=== PATIENT | male | born 1955 | race Caucasian/White ===

== ENCOUNTER 2021-02-24 09:10 | Inpatient (IN) ==
[2021-02-24] MEDS ORDERED: ONDANSETRON 4 MG/2 ML VIAL IV ONE (09:24)
--- NOTE | 2021-02-24 09:32 | Emergency Department Note ---
Weakness HPI General Chief complaint: Weakness Stated complaint: weakness, GI upset Time Seen by Provider: 02/24/21 09:14 Source: patient, RN notes reviewed and old records reviewed Mode of arrival: ambulatory Limitations: no limitations History of Present Illness HPI Narrative: Narrative: 65-year-old male complains of increasing generalized weakness. He denies focal weakness. He explains that he was told that he is having kidney failure secondary to his diabetes. This apparently was 2 weeks ago. Over the last 2 weeks he has had increasing generalized weakness. He complains of nausea vomiting anorexia. He is able to hold down liquids but not solids. He has decreased urine output and for the last week he has had increased nausea and vomiting. He denies fevers chills headache sore throat stiff neck chest pain abdominal pain or diarrhea. Complains of increasing shortness of breath with exertion or laying down. Has chronic peripheral edema with stasis changes to bilateral lower extremities. He knows of no additional work-up or plan for his worsening renal failure. MD Complaint: generalized weakness and lack of energy Onset (ago): week(s) (2) Duration: constant Location: generalized Migration: none Severity: moderate Improves with: none Worsens with: exertion Context: recent illness Associated symptoms: Reports loss of appetite, nausea/vomiting and shortness of breath; Denies chest pain, confusion, dark stools, diaphoresis, dysuria, easy bruising, fever/chills, headaches, myalgias, rash and syncope Related Data Home Medications Medication Instructions Recorded Confirmed lisinopril-hydrochlorothiazide 1 tab PO QDAY 02/24/21 02/24/21 metformin 1,000 mg PO BID 02/24/21 02/24/21 Allergies Allergy/AdvReac Type Severity Reaction Status Date / Time Iodinated Contrast Media Allergy Severe Anaphylaxis Verified 02/24/21 09:20 iodine Allergy Severe Anaphylaxis Verified 02/24/21 09:20 Review of Systems ROS ROS Narrative: Narrative: Constitutional: Reports weakness and weight change; Denies fever, chills and sweats Eyes: Denies vision change ENT ED: Denies throat pain Cardiovascular: Denies chest pain Respiratory: Reports shortness of breath Gastrointestinal: Reports nausea, vomiting and constipation; Denies abdominal pain, diarrhea, hematochezia, melena, hematemesis, acid reflux and heart burn Genitourinary: Reports other (Decreased urine output) Musculoskeletal: Denies back pain Integumentary: Reports rash, lesions and change in color Neurological: Denies headache Psychiatric: Denies depression Endocrine: Reports fatigue Hematological/Lymphatic: Denies easy bruising Allergic/Immunologic: Denies urticaria PFSH Narrative Patient History Narrative: Narrative: Medical/Surgical/Family History All Active Problems (Updated 02/24/21 @ 10:58 by Ludwin Ying MD) Acute renal failure (Acute) Nausea & vomiting (Acute) Non-insulin dependent diabetes mellitus (Acute) Acute hyperkalemia (Acute) Social History Smoking Status: Never smoker Exam Narrative Narrative: Narrative: General Limitations: no limitations General appearance: Present alert, in no apparent distress, malaise and obese Head Head: Present atraumatic and normocephalic Eye Eye: Present normal appearance, PERRL and EOMI ENT ENT: Present normal exam and mucous membranes dry Neck Neck: Present normal inspection and full ROM Chest Chest: Present normal inspection; Absent tenderness Respiratory Respiratory: Present rales/crackles; Absent respiratory distress Cardiovascular Cardiovascular: Present regular rate, normal rhythm and systolic murmur Adbominal Abdominal: Present soft; Absent distention, tenderness, guarding and rebound Extremities Extremities: Present full ROM, pedal edema and pretibial edema; Absent tenderness, normal capillary refill and calf tenderness Back Back: Present normal inspection; Absent CVA tenderness (R) and CVA tenderness (L) Neurological Neurological: Present alert and oriented X3 Psychiatric Psychiatric: Present normal affect and normal mood Skin Skin: Present warm (WNL) and rash (Chronic stasis changes to bilateral lower extremities) Course Vital Signs Vital signs: Vital Signs Temperature 98.9 F 02/24/21 09:10 Pulse Rate 115 H 02/24/21 09:10 Blood Pressure 218/86 02/24/21 09:10 Pulse Oximetry (%) 98 02/24/21 09:10 Temperature 98.0 F 02/24/21 09:11 Pulse Rate 95 H 02/24/21 11:02 Blood Pressure 144/124 02/24/21 11:02 Pulse Oximetry (%) 100 02/24/21 11:02 MDM MDM Narrative Medical decision making narrative: Narrative: Patient with marginally elevated white count that is lymphocyte predominant. H&H is 10.8/31.5 appears to be anemia of chronic disease. K is 5.2 but there are no hyperacute T waves on EKG. BUN is 161 over a creatinine is 16.3. I believe the uremia is causing the patient's nausea and vomiting. Discussed this patient with renal requested hospitalist admit patient and he will see in consultation. Patient admitted to hospitalist diagnosis acute renal failure mild hyperkalemia anemia of chronic disease nonindependent diabetes Lab Data Lab results reviewed: Yes I reviewed the patient's lab results. Result diagrams: 02/24/21 09:32 02/24/21 09:32 Labs: Lab Results 02/24/21 02/24/21 02/24/21 Range/Units 09:32 09:32 09:32 WBC 13.3 H (4.5-11.0) K/mcL RBC 3.48 L (4.50-5.90) M/mcL Hgb 10.8 L (13.5-16.5) g/dL Hct 31.5 L (41.0-55.0) % MCV 90.5 (80.0-100.0) fL MCH 31.0 (26.0-34.0) pg MCHC 34.3 (31.0-36.0) g/dL RDW 12.1 (11.5-14.5) % Plt Count 222 (140-440) K/mcL MPV 11.6 H (7.4-10.4) fL Neut % (Auto) 76.0 (38.0-78.0) % Lymph % (Auto) 14.7 L (15.0-49.0) % [place] % (Auto) 8.9 (1.0-12.0) % Eos % (Auto) 0.2 (0.0-7.0) % Baso % (Auto) 0.2 (0.0-2.0) % Lymph # (Auto) 1.96 (1.50-4.80) K/mcL [place] # (Auto) 1.18 H (0.10-0.90) K/mcL Eos # (Auto) 0.02 (0.00-0.70) K/mcL Baso # (Auto) 0.03 (0.00-0.20) K/mcL Absolute Neutrophils 10.11 H (1.80-8.00) K/mcL Sodium 139 (133-145) mmol/L Potassium 5.2 H (3.3-5.1) mmol/L Chloride 97 (96-108) mmol/L Carbon Dioxide 9 L* (22-30) mmol/L Anion Gap 33.0 H (8.0-16.0) BUN 161 H* (8-23) mg/dL Creatinine 16.3 H* (0.7-1.2) mg/dL GFR Calculation 3 Glucose 122 H (70-105) mg/dL Calcium 9.1 (8.6-10.4) mg/dL Total Bilirubin 0.3 (0.1-1.0) mg/dL AST 8 (<40) U/L ALT 8 (<40) U/L Alkaline Phosphatase 71 (39-117) U/L Troponin T 0.02 (<0.03) ng/mL Total Protein 7.2 (5.9-8.4) gm/dL Albumin 4.0 (3.2-5.2) gm/dL Globulin 3.2 (2.2-3.7) gm/dL Albumin/Globulin Ratio 1.3 (1.0-2.3) Radiology Data Radiology results reviewed: Yes I reviewed the patient's radiology results. EKG Data EKG #1: EKG attestation: Yes I reviewed and interpreted this EKG. EKG shows normal: sinus rhythm Rate: normal (90) Rhythm: NSR [place]/QRS: left axis deviation Hyperacute T waves: None Interpretation: normal EKG Pulse Oximetry Data Pulse Ox %: 99 Interpretation: 99% within normal limits. Discharge Plan Patient/Caregiver Discharge Instructions Pt seen by PLAYGROUND AIDE/PA only: No Clinical Impression: Non-insulin dependent diabetes mellitus, Acute hyperkalemia Acute renal failure Qualifiers: Acute renal failure type: unspecified Qualified Code(s): N17.9 - Acute kidney failure, unspecified Nausea & vomiting Qualifiers: Vomiting type: unspecified Vomiting Intractability: intractable Qualified Code(s): R11.2 - Nausea with vomiting, unspecified Patient Disposition: Xfer As Inpt ([facility]) Follow up with: Shashank Rocha MD [Primary Care Provider] - Prescriptions: No Action metformin 1,000 mg Tablet 1,000 mg PO BID RF: 0 lisinopril-hydrochlorothiazide 20-25 mg Tablet 1 tab PO QDAY RF: 0
[2021-02-24 10:12] LABS: Basophils # (Auto) 0.03 K/mcL (0.00-0.20); Basophils % (Auto) 0.2 % (0.0-2.0); Eosinophils # (Auto) 0.02 K/mcL (0.00-0.70); Eosinophils % (Auto) 0.2 % (0.0-7.0); Hematocrit 31.5 % (41.0-55.0); Hemoglobin 10.8 g/dL (13.5-16.5); Lymphocytes # (Auto) 1.96 K/mcL (1.50-4.80); Lymphocytes % (Auto) 14.7 % (15.0-49.0); Mean Cell Volume 90.5 fL (80.0-100.0); Mean Corpuscular HGB Conc 34.3 g/dL (31.0-36.0); Mean Platelet Volume 11.6 fL (7.4-10.4); Monocytes # (Auto) 1.18 K/mcL (0.10-0.90); Monocytes % (Auto) 8.9 % (1.0-12.0); Platelet Count 222 K/mcL (140-440); RBC 3.48 M/mcL (4.50-5.90); Red Cell Distribution Width 12.1 % (11.5-14.5); WBC 13.3 K/mcL (4.5-11.0)
[2021-02-24 10:51] LABS: ALT/SGPT 8 U/L (<40); AST/SGOT 8 U/L (<40); Albumin/Globulin Ratio 1.3 (1.0-2.3); Alkaline Phosphatase 71 U/L (39-117); Bilirubin,Total 0.3 mg/dL (0.1-1.0); Blood Urea Nitrogen 161 mg/dL (8-23); Calcium 9.1 mg/dL (8.6-10.4); Carbon Dioxide 9 mmol/L (22-30); Chloride 97 mmol/L (96-108); Globulin 3.2 gm/dL (2.2-3.7); Glomerular Filtration Rate 3; Glucose 122 mg/dL (70-105)
[2021-02-24] MEDS ORDERED: SODIUM BICARBONATE VIAL 150 MEQ in DEXTROSE 5% IN WATER 850 ML IV SCH ×2 (11:15→20:00)
--- NOTE | 2021-02-24 11:50 | XRay Report ---
CLINICAL INFORMATION: Shortness of breath COMPARISON: None. TECHNIQUE: Portable FINDINGS: The heart size, mediastinum and pulmonary vessels are unremarkable. The lungs are clear. There are no effusions. The bones and soft tissues are within normal limits. IMPRESSION: Normal chest. Interpreted and Authenticated by: Finesse Griffin 02/24/21
--- NOTE | 2021-02-24 12:48 | Internal Med History&Physical ---
HPI History of Present Illness Patient information: Note initiated : 02/24/21 at 12:41 pm Service Date, if different from initiated Date: [] Patient: Finesse Beaver 65 y/o M admitted on for weakness, GI upset. Chief Complaint: [] History of present illness: Mr. Beaver is a 65 year old male with a history of hypertension, non-insulin diabetes, CKD stage III, history of melanoma status post resection and immunotherapyno known recurrence, psoriasis who presented to the ED for nausea, vomiting and generally feeling unwell. Patient was found to be in renal failure with a creatinine of 16.3, anion gap metabolic acidosis, mild hyperkalemia. The patient had previous labs which showed a creatinine of 2.61 on February 07, 2021. Patient says that he was feeling okay up until about a week ago when he developed watery diarrhea which progressed to intractable nausea and vomiting. The patient experienced chills during this time but does not recall any fevers. The patient's diarrhea has resolved but he continues to have intractable vomiting and unable to keep down food or liquids. Patient says that he stopped urinating 2 to 3 days ago. Review of available documents show that the patient had an elevated creatinine in December 2019 of 1.61, repeat labs in January 2020 showed a creatinine of 1.65. Patient said he had labs drawn during a routine wellness visit on February 07, 2021. Creatinine at that time was 2.61. Hemoglobin was slightly decreased at 12.3. Hemoglobin A1c was 6.9. The patient was admitted for management and further up of acute renal failure. Constitutional: Positive for chills, fatigue, anorexia Eyes: no vision changes or pain Cardiovascular: no chest pain, no palpitations Respiratory: no cough or dyspnea Gastrointestinal: Positive for nausea and vomiting, resolving diarrhea Genitourinary: Positive for anuria Musculoskeletal: no arthralgia or myalgia Integumentary: Positive for chronic psoriatic skin lesions Neurological: no focal weakness or numbness Psychiatric: no anxiety or depression Head: Atraumatic, normal inspection. Eyes: normal appearance, no scleral icterus. Neck: full ROM Respiratory: no respiratory distress. Cardiovascular: normal rate and rhythm, S1, S2. GI/Abdominal: soft, nontender, no guarding. Extremities: full range of motion, nontender. Neurological: CN II-XII intact, intact motor, intact sensation. Psychiatric: normal mood. Skin: Psoriatic plaque on right knee. PFSH PFSH All Active Problems (Updated 02/24/21 @ 10:58 by Ludwin Ying MD) Acute renal failure (Acute) Nausea & vomiting (Acute) Non-insulin dependent diabetes mellitus (Acute) Acute hyperkalemia (Acute) MEDS/ALLERGIES Home Medications and Allergies Home Medications Medication Instructions Recorded Confirmed Type lisinopril-hydrochlorothiazide 1 tab PO QDAY 02/24/21 02/24/21 History metformin 1,000 mg PO BID 02/24/21 02/24/21 History Allergies Allergy/AdvReac Type Severity Reaction Status Date / Time Iodinated Contrast Media Allergy Severe Anaphylaxis Verified 02/24/21 09:20 iodine Allergy Severe Anaphylaxis Verified 02/24/21 09:20 EXAM Constitutional Vitals: Temp Pulse BP Pulse Ox 98.0 F 93 H 188/79 97 02/24/21 09:11 02/24/21 12:18 02/24/21 12:18 02/24/21 12:18 DATA Data Completed and Pending Labs: Labs from last 24 hours 02/24/21 02/24/21 02/24/21 10:44 10:44 10:44 WBC RBC Hgb Hct MCV MCH MCHC RDW Plt Count MPV Neut % (Auto) Lymph % (Auto) [place] % (Auto) Eos % (Auto) Baso % (Auto) Lymph # (Auto) [place] # (Auto) Eos # (Auto) Baso # (Auto) Absolute Neutrophils Sodium Potassium Chloride Carbon Dioxide Anion Gap BUN Creatinine GFR Calculation Glucose Calcium Total Bilirubin AST ALT Alkaline Phosphatase Troponin T Total Protein Albumin Globulin Albumin/Globulin Ratio Urine Eosinophils Pending Ur Random Creatinine U Random Total Protein Pending Ur Random Sodium Pending Ur Random Potassium Pending Ur Random Chloride Pending 02/24/21 02/24/21 02/24/21 10:44 09:32 09:32 WBC RBC Hgb Hct MCV MCH MCHC RDW Plt Count MPV Neut % (Auto) Lymph % (Auto) [place] % (Auto) Eos % (Auto) Baso % (Auto) Lymph # (Auto) [place] # (Auto) Eos # (Auto) Baso # (Auto) Absolute Neutrophils Sodium 139 Potassium 5.2 H Chloride 97 Carbon Dioxide 9 L* Anion Gap 33.0 H BUN 161 H* Creatinine 16.3 H* GFR Calculation 3 Glucose 122 H Calcium 9.1 Total Bilirubin 0.3 AST 8 ALT 8 Alkaline Phosphatase 71 Troponin T 0.02 Total Protein 7.2 Albumin 4.0 Globulin 3.2 Albumin/Globulin Ratio 1.3 Urine Eosinophils Ur Random Creatinine Pending U Random Total Protein Ur Random Sodium Ur Random Potassium Ur Random Chloride 02/24/21 09:32 WBC 13.3 H RBC 3.48 L Hgb 10.8 L Hct 31.5 L MCV 90.5 MCH 31.0 MCHC 34.3 RDW 12.1 Plt Count 222 MPV 11.6 H Neut % (Auto) 76.0 Lymph % (Auto) 14.7 L [place] % (Auto) 8.9 Eos % (Auto) 0.2 Baso % (Auto) 0.2 Lymph # (Auto) 1.96 [place] # (Auto) 1.18 H Eos # (Auto) 0.02 Baso # (Auto) 0.03 Absolute Neutrophils 10.11 H Sodium Potassium Chloride Carbon Dioxide Anion Gap BUN Creatinine GFR Calculation Glucose Calcium Total Bilirubin AST ALT Alkaline Phosphatase Troponin T Total Protein Albumin Globulin Albumin/Globulin Ratio Urine Eosinophils Ur Random Creatinine U Random Total Protein Ur Random Sodium Ur Random Potassium Ur Random Chloride A/P Narrative A/P Narrative: Assessment: 65-year-old male with a history of HTN, [id number], CKD III, history of renal stones, history of melanoma status post resection and immunotherapyno known recurrence, psoriasis admitted for acute on chronic failure. Initial work-up in the ED suggestive of bilateral hydronephrosis and probably renal stones. Patient requested DNR code status. #Severe acute on chronic kidney disease stage III injuryanuric vs oliguric? #Anion gap metabolic acidosis #Hyperkalemia #Hypertensive urgency #Normocytic anemialikely due to CKD #Probable bilateral hydronephrosis #History of renal stones #Diabetes mellituswell controlled #Essential hypertension #Hx of melanoma status post resection and immunotherapy in the 1990sno known recurrence #Plaque psoriasis #Obesity Plan -IV fluid with bicarbonate, nephrology to manage. -Follow potassium and renal function closely. -Urinalysis -Follow urine output closely. -Avoid nephrotoxic meds, renally dose meds. -CT abdomen pelvis without contrast. -Start Norvasc 5 mg daily. -Labetalol IV and hydralazine IV as needed. -SSI for now. -Holding home lisinoprilhydrochlorothiazide, Metformin. -Follow-up pending renal ultrasound results. -Urology consulteddiscussed with Dr. Palacios. -Nephrology consulted by ED-Dr. Whittington. -Telemetry until hyperkalemia resolves. -DVT PPx: Heparin SQ -CODE STATUS: DNR per patient's request. Time Spent With Patient Time: Total time spent is greater than 50% in coordination of care (as documented) at patient's floor/unit and/or counseling patient: 70
[2021-02-24] MEDS ORDERED: DEXTROSE 31 GM ORAL.SUSP PO PRN ×2 (13:11→13:53)
[2021-02-24] MEDS ORDERED: hydrALAZINE 20 MG/ML VIAL IV PRN ×2 (13:11→13:53)
[2021-02-24] MEDS ORDERED: DEXTROSE 50% 50 ML VIAL IV PRN ×2 (13:11→13:53)
[2021-02-24] MEDS ORDERED: LABETALOL 5 MG/ML ML IV PRN ×3 (13:11→15:14)
[2021-02-24] MEDS ORDERED: ONDANSETRON 4 MG/2 ML VIAL IV PRN ×4 (13:11→15:36)
--- NOTE | 2021-02-24 13:54 | General Surgery Consult Note ---
HPI Data of Consult Patient: new to practice Primary Care Provider: Shashank Rocha Consult Narrative Patient Information: Note initiated : 02/24/21 at 1:45 pm Service Date, if different from initiated Date: [] Patient: Finesse Beaver 65 y/o M admitted on 02/24/21 for weakness, GI upset. Chief Complaint: [] Reason for consult: Renal failure cc:: Patient seen a 65-year-old with presentation emergency room with renal failure and ultrasound demonstrating bilateral hydronephrosis and subsequent CT demonstrating bilateral large renal calculi at the UPJ with hydronephrosis and no hydroureter noted. Patient has minimal urine in the bladder consistent with bilateral ureteral obstruction and renal failure subsequently. Patient relates he has had stones in the past but managed without having seen a urologist by his family practice practitioner. He relates he has had no past infection problems to his knowledge. Has had no problem with anesthesia in the past and has hypertension without anticoagulation presently. CC: Richardson Burgos MD PFSH PFSH All Active Problems Bilateral kidney stones (Acute) Acute renal failure (Acute) Nausea & vomiting (Acute) Non-insulin dependent diabetes mellitus (Acute) Acute hyperkalemia (Acute) Medical History Bilateral kidney stones MEDS/ALLERGIES Home Medications and Allergies Home Medications Medication Instructions Recorded Confirmed Type lisinopril-hydrochlorothiazide 1 tab PO QDAY 02/24/21 02/24/21 History metformin 1,000 mg PO BID 02/24/21 02/24/21 History Allergies Allergy/AdvReac Type Severity Reaction Status Date / Time Iodinated Contrast Media Allergy Severe Anaphylaxis Verified 02/24/21 09:20 iodine Allergy Severe Anaphylaxis Verified 02/24/21 09:20 Physical Examination Vital Signs Vital signs: Temp Pulse BP Pulse Ox 98.0 F 96 H 202/76 98 02/24/21 09:11 02/24/21 12:32 02/24/21 12:32 02/24/21 12:32 General physical appearance General physical exam: well developed, well nourished and moderate distress Eyes Eye exam: PERRL and normal ocular movement ENT ENT exam: normal pinna, normal nares, normal mucosa, no hearing loss and no congestion Head Head exam IM: Present atraumatic and normocephalic Neck Neck exam: no masses, no bruits, trachea midline, no lymphadenopathy and no venous distension Cardiovascular Cardiovascular exam IM: Present normal rate and rhythm Respiratory Respiratory exam: normal expansion, normal respiratory effort, clear to percussion and clear to auscultation Abdomen Abdomen: Present soft Hernia: Present none Genitourinary Genitourinary (Male): Present normal penis with no external lesions Rectum Rectum: Present normal sphincter tone, no hemorrhoids, no tenderness, no masses and no bleeding Integumentary Integumentary: Present no rash, no growths and no abnormal pigmentation Neurologic Neurologic: Present normal coordination and normal sensation Musculoskeletal Musculoskeletal: Present normal gait, normal posture and other (Mild bilateral CVA tenderness) Psychiatric Psychiatric: Present oriented to time, oriented to person, oriented to place, speech is normal and memory intact Results Labs Result diagrams: 02/24/21 09:32 02/24/21 09:32 Labs: Abnormal lab results 02/24/21 02/24/21 Range/Units 09:32 09:32 WBC 13.3 H (4.5-11.0) K/mcL RBC 3.48 L (4.50-5.90) M/mcL Hgb 10.8 L (13.5-16.5) g/dL Hct 31.5 L (41.0-55.0) % MPV 11.6 H (7.4-10.4) fL Lymph % (Auto) 14.7 L (15.0-49.0) % [place] # (Auto) 1.18 H (0.10-0.90) K/mcL Absolute Neutrophils 10.11 H (1.80-8.00) K/mcL Potassium 5.2 H (3.3-5.1) mmol/L Carbon Dioxide 9 L* (22-30) mmol/L Anion Gap 33.0 H (8.0-16.0) BUN 161 H* (8-23) mg/dL Creatinine 16.3 H* (0.7-1.2) mg/dL Glucose 122 H (70-105) mg/dL Diabetes panel 02/24/21 Range/Units 09:32 Sodium 139 (133-145) mmol/L Potassium 5.2 H (3.3-5.1) mmol/L Chloride 97 (96-108) mmol/L Carbon Dioxide 9 L* (22-30) mmol/L BUN 161 H* (8-23) mg/dL Creatinine 16.3 H* (0.7-1.2) mg/dL Glucose 122 H (70-105) mg/dL Calcium 9.1 (8.6-10.4) mg/dL AST 8 (<40) U/L ALT 8 (<40) U/L Alkaline Phosphatase 71 (39-117) U/L Total Protein 7.2 (5.9-8.4) gm/dL Albumin 4.0 (3.2-5.2) gm/dL Calcium panel 02/24/21 Range/Units 09:32 Calcium 9.1 (8.6-10.4) mg/dL Albumin 4.0 (3.2-5.2) gm/dL Pituitary panel 02/24/21 Range/Units 09:32 Sodium 139 (133-145) mmol/L Potassium 5.2 H (3.3-5.1) mmol/L Chloride 97 (96-108) mmol/L Carbon Dioxide 9 L* (22-30) mmol/L BUN 161 H* (8-23) mg/dL Creatinine 16.3 H* (0.7-1.2) mg/dL Glucose 122 H (70-105) mg/dL Calcium 9.1 (8.6-10.4) mg/dL Adrenal panel 02/24/21 Range/Units 09:32 Sodium 139 (133-145) mmol/L Potassium 5.2 H (3.3-5.1) mmol/L Chloride 97 (96-108) mmol/L Carbon Dioxide 9 L* (22-30) mmol/L BUN 161 H* (8-23) mg/dL Creatinine 16.3 H* (0.7-1.2) mg/dL Glucose 122 H (70-105) mg/dL Calcium 9.1 (8.6-10.4) mg/dL Total Bilirubin 0.3 (0.1-1.0) mg/dL AST 8 (<40) U/L ALT 8 (<40) U/L Alkaline Phosphatase 71 (39-117) U/L Total Protein 7.2 (5.9-8.4) gm/dL Albumin 4.0 (3.2-5.2) gm/dL All other labs normal. A/P Narrative A/P Narrative: Assessment: Renal failure with bilateral renal pelvis stones and UPJ obstructions with anuria. Plan: Proceed with cystoscopy bilateral stone pushback and stent placement as soon as possible Patient understands risks and benefits and agrees to plan as outlined and will proceed with subsequent stone management once renal failure has improved/resolved. Time Spent With Patient Time: Total time spent is greater than 50% in coordination of care (as documented) at patient's floor/unit and/or counseling patient: Total time spent with greater than 50% in coordination of care (as documented) at patient's floor/unit and/or counseling patient:: 15 - 24 minutes
[2021-02-24] MEDS ORDERED: 0.9 % SODIUM CHLORIDE 10 ML SYRINGE IV SCH (14:00)
--- NOTE | 2021-02-24 14:04 | Nephrology History & Physical ---
HPI History of Present Illness Patient information: Note initiated : 02/24/21 at 1:59 pm Service Date, if different from initiated Date: [] Patient: Finesse Beaver 65 y/o M admitted on 02/24/21 for weakness, GI upset. Chief Complaint: [N,V, Diarrhea] History of present illness: Mr. Beaver is a 65 year old Male patient with HTN and T2DM on lisinopril/HCt and metformin who had nl GFR till recently when PCP reported BUN/Cr of 54 and 2.6 mg/d/ on February 07, 2021. Has a Hx of stone passage in past but no need for stents or lithotripsy. To ED this am and found with the following labs and radiography: Laboratory Tests 02/24/21 02/24/21 09:32 09:32 WBC 13.3 H Hgb 10.8 L Hct 31.5 L Plt Count 222 Potassium 5.2 H Chloride 97 Carbon Dioxide 9 L* BUN 161 H* Creatinine 16.3 H* GFR Calculation 3 Glucose 122 H Calcium 9.1 Albumin 4.0 Right and Left Kidneys (13 and 16 cm) CT Scan The patient was taken to the operating room and had bilateral double-J stents placed. Anticipate marked improvement in his GFR and acidosis over the next 24 to 72 hours. Ultimately he will need bilateral stone extraction or extracorporeal shockwave lithotripsy. Urine culture is pending. Lisinopril HCT and Metformin will be held pending improvement in his GFR. Review of Systems All systems: reviewed and no additional remarkable complaints except as stated Constitutional Constitutional: Absent fever(s) Gastrointestinal Gastrointestinal: Present diarrhea, nausea and vomiting PFSH PFSH All Active Problems (Updated 02/24/21 @ 18:58 by Chris Whittington MD) Acute bilateral obstructive uropathy (Acute) Metabolic acidosis with increased anion gap and accumulation of organic acids (Acute) Acute renal failure (Acute) Acute hyperkalemia (Acute) Nausea & vomiting (Acute) Non-insulin dependent diabetes mellitus (Acute) Bilateral kidney stones (Acute) Medical History Bilateral kidney stones MEDS/ALLERGIES Home Medications and Allergies Home Medications Medication Instructions Recorded Confirmed Type lisinopril-hydrochlorothiazide 1 tab PO QDAY 02/24/21 02/24/21 History metformin 1,000 mg PO BID 02/24/21 02/24/21 History Allergies Allergy/AdvReac Type Severity Reaction Status Date / Time Iodinated Contrast Media Allergy Severe Anaphylaxis Verified 02/24/21 09:20 iodine Allergy Severe Anaphylaxis Verified 02/24/21 09:20 Physical Examination Vital Signs Vital signs: Temp Pulse BP Pulse Ox 36.7 C 96 H 202/76 98 02/24/21 09:11 02/24/21 12:32 02/24/21 12:32 02/24/21 12:32 General Appearance General appearance: well-developed and obese EENT EENT: ATNC, PERRL and mucous membranes moist Neck Neck: no JVD, no carotid bruit and supple Respiratory Respiratory: clear Cardiovascular Cardiology: no murmurs, no rub, no gallops, no edema, regular rate, regular rhythm, normal S1 and normal S2 Gastrointestinal Gastrointestinal: normoactive bowel sounds, no tenderness and no guarding Integumentary Integumentary: no rash Neurologic Neurologic: no focal deficit, no asterixis, alert and oriented x3 and CN 3-12 intact Musculoskeletal Musculoskeletal: no deformities, no erythema and no cyanosis Psychiatric Psychiatric: mood/affect appropriate Results Lab Results Result Diagrams: 02/24/21 09:32 02/24/21 16:18 Lab results: Most recent lab results Calcium 9.1 mg/dL (8.6-10.4) 02/24/21 09:32 A/P Assessment and plan (1) Acute renal failure: Status: Acute Qualifiers: Acute renal failure type: unspecified Qualified Code(s): N17.9 - Acute kidney failure, unspecified (2) Acute hyperkalemia: Status: Acute (3) Metabolic acidosis with increased anion gap and accumulation of organic acids: Status: Acute (4) Acute bilateral obstructive uropathy: Status: Acute Narrative A/P Narrative: This patient has a 1 month history of acute renal failure primarily due to bilateral obstructive uropathy from kidney stones as demonstrated on today's imaging. Lisinopril is contributing to worsening GFR by interfering with renal autoregulation of blood flow Metformin is contributing to the obstruction related type IV RTA (not anion gap) by causing a lactic acidosis due to its administration in a patient with GFR less than 10 cc/min. Anticipate all this will improve in the next 24 to 72 hours Anticipate that he will require potassium replacement as his acidosis is corrected. Time Spent With Patient Time: Total time spent is greater than 50% in coordination of care (as documented) at patient's floor/unit and/or counseling patient: Total time spent with greater than 50% in coordination of care (as documented) at patient's floor/unit and/or counseling patient:: Greater than 35 minutes
[2021-02-24] MEDS: cefTRIAXone 1 GM VIAL IV SCH (14:28)
[2021-02-24] MEDS ORDERED: PROPOFOL 200 MG/20 ML VIAL IV ONE (14:41)
[2021-02-24] MEDS ORDERED: MIDAZOLAM 2 MG/2 ML VIAL ONE (14:41)
[2021-02-24] MEDS ORDERED: GLYCOPYRROLATE 0.2 MG/ML VIAL IV ONE (14:41)
[2021-02-24] MEDS ORDERED: fentaNYL 100 MCG/2 ML VIAL IV ONE (14:41)
[2021-02-24] MEDS ORDERED: ONDANSETRON 4 MG/2 ML VIAL ONE (14:41)
[2021-02-24] MEDS ORDERED: DEXAMETHASONE 10 MG/ML VIAL ONE (14:41)
[2021-02-24] MEDS ORDERED: KETAMINE 100 MG/ML ML ONE (14:41)
[2021-02-24] MEDS ORDERED: LIDOCAINE HCL/PF 100 MG/5 ML SYRINGE IV ONE (14:41)
[2021-02-24] MEDS ORDERED: fentaNYL 100 MCG/2 ML VIAL IV PRN (15:14)
[2021-02-24] MEDS ORDERED: ACETAMINOPHEN 1,000 MG/100 ML BAG IV ONE (15:14)
[2021-02-24] MEDS ORDERED: BENZOCAINE/MENTHOL 1 LOZENGE PO PRN (15:14)
[2021-02-24] MEDS ORDERED: IPRATROPIUM/ALBUTEROL 3 ML AMPUL.NEB NEB PRN (15:14)
[2021-02-24] MEDS ORDERED: LACTATED RINGERS 1,000 ML IV SCH (15:15)
--- NOTE | 2021-02-24 15:36 | Operative Note ---
Operative Note Operative Note: Operation report Date of service 24 February 2021 Preop diagnosis: acute renal failure with bilateral ureteral obstruction secondary to renal calculi and anuria Postop diagnosis: Same Surgeon: Dr. Jose E Palacios Operation performed: Cystoscopy with bilateral stone pushback and stent placement with fluoroscopy Anesthesia: Dr. Freed type General Drains: Bilateral 7 x 28 cm double-J stents with no suture per urethra 16 Macanese coud catheter to straight drainage Estimated blood loss less than 50 cc Complications: None Additional procedure: Fluoroscopy Description: After adequate induction of general incision on the operating room table patient had timeout and repositioning in the dorsolithotomy position p atient had prepping with Hibiclens and patient was noted to have marked phimosis. Patient had the 21 Macanese cystoscope however passed per urethra with some difficulty and bladder entrance was noted to have trilobar hypertrophy with moderate obstruction. No other bladder mucosal anomaly was noted other than early cellule formation. Patient had right ureter cannulated and 038 Glidewire was passed into the renal pelvis beyond the obstructing calculi and a 7 x 28 centimeters double-J stent was passed with no suture per urethra. Confirmation of positioning was done fluoroscopically and cystoscopically. A similar procedure was carried out on the left renal unit pushing the UPJ stone proximally and coiling the proximal end of the stent in the renal pelvis with distal end visualized in the bladder. Patient had cloudy and light red urine effluxing from both ureters consistent with relief of obstruction. Patient had some stretching of the 5 myotic foreskin some allow placement of a 16 Macanese coud catheter to straight drainage with 8 cc left in the balloon. Patient was returned to recovery area in stable condition having tolerated procedure well will monitor for high output renal failure.
[2021-02-24] MEDS ORDERED: METOPROLOL TARTRATE 5 MG/5 ML VIAL IV ONE (15:41)
[2021-02-24] MEDS: METOPROLOL TARTRATE 5 MG/5 ML VIAL IV PRN ×2 (15:46→15:50)
[2021-02-24] MEDS: DEXTROSE 5%-NS 1,000 ML IV SCH ×2 (16:50→22:42)
[2021-02-24] MEDS: 0.9 % SODIUM CHLORIDE 10 ML SYRINGE IV SCH ×3 (16:57→22:06)
[2021-02-24] MEDS ORDERED: INSULIN LISPRO 1 UNIT/0.01 ML UNIT SQ SCH (17:00)
[2021-02-24 17:22] LABS: Appearance,Urine CLEAR (Clear); Bilirubin,Urine Negative (Negative); Color,Urine STRAW; Culture Indicated,Urine yes; Glucose,Urine (UA) 150 mg/dL (Negative); Ketones,Urine 5 mg/dL (Negative); Leukocyte Esterase,Urine 25 /ug (Negative); Nitrate,Urine Negative (Negative); Protein,Urine 100 mg/dL (Negative); Specific Gravity,Urine 1.006 (1.000-1.035); Urine RBC > 182 /hpf (0-1); Urine Squamous Epithelial Cell 0 /hpf (0-4); Urine WBC 10 /hpf (0-4); Urobilinogen,Urine Negative
[2021-02-24] MEDS: SODIUM BICARBONATE VIAL 150 MEQ in DEXTROSE 5% IN WATER 850 ML IV SCH ×2 (17:22→21:06)
[2021-02-24] MEDS: 0.45 % SODIUM CHLORIDE 1,000 ML IV SCH ×3 (17:25→22:13)
[2021-02-24 17:27] LABS: Chloride,Urine Random 88 mmol/L (110-250); Potassium,Urine Random 8.7 mmol/L
[2021-02-24] MEDS: INSULIN LISPRO 1 UNIT/0.01 ML UNIT SQ SCH ×2 (17:36→21:14)
[2021-02-24 18:03] LABS: ALT/SGPT 5 U/L (<40); AST/SGOT 10 U/L (<40); Albumin 3.8 gm/dL (3.2-5.2); Albumin/Globulin Ratio 1.1 (1.0-2.3); Alkaline Phosphatase 70 U/L (39-117); Bilirubin,Direct < 0.2 mg/dL (0-0.3); Bilirubin,Total 0.3 mg/dL (0.1-1.0); Blood Urea Nitrogen 151 mg/dL (8-23); Calcium 8.9 mg/dL (8.6-10.4); Carbon Dioxide 11 mmol/L (22-30); Chloride 95 mmol/L (96-108); Globulin 3.5 gm/dL (2.2-3.7); Glomerular Filtration Rate 3; Glucose 184 mg/dL (70-105); Lactate Dehydrogenase 245 U/L (135-225); Phosphorous 11.7 mg/dL (2.5-4.5); Triglycerides 178 mg/dL (<150); Uric Acid 14.6 mg/dL (2.5-8.0)
[2021-02-24] MEDS ORDERED: INSULIN REGULAR, HUMAN 1 UNIT/0.01 ML UNIT IV ONE (18:13)
[2021-02-24] MEDS ORDERED: DEXTROSE 50% 50 ML VIAL IV ONE (18:13)
[2021-02-24] MEDS ORDERED: SODIUM POLYSTYRENE SULFONATE 15 GM/60 ML SUSPENSION PO ONE (18:15)
--- NOTE | 2021-02-24 18:16 | XRay Report ---
CLINICAL INFORMATION: stent placement COMPARISON: None. FINDINGS: Digital images from the OR show placement of bilateral double pigtail ureteral stents which appear to be in satisfactory position. IMPRESSION: Placement of bilateral double pigtail ureteral stents to treat obstructing stone disease in the upper collecting systems Interpreted and Authenticated by: Finesse Griffin 02/24/21
--- NOTE | 2021-02-24 19:05 | Cat Scan Report ---
CLINICAL INFORMATION: Symptoms of abdominal pain, nausea and weakness. History of renal stones COMPARISON: None. TECHNIQUE: 0.625 mm helical slices were obtained from the mid heart through the subtrochanteric regions. Following reconstruction, 2.5 mm sagittal, coronal and axial reformatted images were processed and reviewed at bone and soft tissue windows.The exam was performed using radiation dose optimization techniques including, but not limited to, automated exposure control, adjustment of the mA and/or kV according to patient size and use of iterative reconstruction technique. FINDINGS: Multiple large stones are seen within both upper collecting systems: on the left, a 3 cm stone in the medial pelvis partially obstructs the UPJ. 8 mm nonobstructing stone inferior calyx and 8 mm nonobstructing stone within a mid calyx appreciated. On the right, the stones are more numerous: 17 mm stone in the medial pelvis partially obstructing the UPJ. 18 mm stone in the superior pelvis. 23 mm staghorn calculus filling the inferior calyces, 16 mm calculus within mid calyces and a collection of 7-8 calculi within the superior calyces ranging between 22 and 2 mm. Mild bilateral hydronephrosis is ostensibly related to intermittent obstruction of the pelvic stones at the UPJ regions. Both kidneys demonstrate mild diffuse edema or inflammation and there is perinephric stranding. Both ureters are unremarkable. Lung bases show no abnormality - no effusion. The visualized heart is normal. Abdominal images show the noncontrasted gallbladder and bile ducts, liver, both adrenal glands, spleen and aorta are normal in size and duration attenuation without focal lesion. There is moderate pancreatic atrophy with fat replacement of the parenchyma. No focal pancreatic lesions. There is no free air, free fluid or adenopathy Pelvic images show prostate, seminal vesicles and urinary bladder to be normal. Scattered sigmoid diverticuli appreciated, but no evidence of diverticulitis. The remaining large bowel, appendix small bowel and stomach are normal. Bone windows show no focal osseous normality. At L2-3 large broad calcified disc spur complex left-sided asymmetry facet arthropathy result in severe central canal left lateral recess and left IV foraminal narrowing. At L4-5 large broad disc spur complex and facet arthropathy result in severe central canal and bilateral lateral recess narrowing moderate IV foraminal narrowing At L4-5 moderate broad disc spur complexes arthropathy result in severe central canal and bilateral lateral recess narrowing.. IMPRESSION: 1. Multiple large stones in the upper collecting systems of both kidneys - more numerous on the right side. 3 cm stone near the left UPJ and 1.7 cm stone near the right UPJ resulting in UPJ obstruction and moderate bilateral hydronephrosis. Edema or inflammation in both kidneys may indicate superimposed infection related to urinary stasis. Perinephric stranding noted. 2. Moderate pancreatic atrophy. 3. Severe degenerative change L2-3 through L4-5 resulting in central canal and IV foraminal narrowing. Please correlate with neurogenic claudication and/or lumbar radiculopathy Interpreted and Authenticated by: Finesse Griffin 02/24/21
--- NOTE | 2021-02-24 19:07 | Ultrasound Report ---
CLINICAL INFORMATION: ARF r/o obstruction and measure renal size and ech COMPARISON: None. FINDINGS: Both kidneys are mildly enlarged: The right is 13.9 cm x 9 cm and the left is 13.9 x 6.5 cm. Echotexture is slightly decreased suggesting diffuse edema or inflammation. Mild bilateral hydronephrosis noted. There are multiple stones throughout both kidneys: the largest in the right is 3.5 cm in the pelvic region. Largest on the left is 2.8 cm also in the pelvic region Small amount of urine noted in the urinary bladder which is normal. Prostate is not visualized IMPRESSION: Multiple stones throughout upper collecting systems of both kidneys including the renal pelvis. Suspect partial obstruction of both UPJ resulting in moderate bilateral hydronephrosis. Edema or inflammation of both kidneys appreciated. Follow-up noncontrast CT to be performed Interpreted and Authenticated by: Finesse Griffin 02/24/21
[2021-02-24] MEDS: ACETAMINOPHEN 325 MG TABLET PO PRN (19:30)
[2021-02-24] MEDS: HEPARIN 5,000 UNIT/ML VIAL SQ SCH (20:38)
[2021-02-24] MEDS: DOCUSATE SODIUM 100 MG CAPSULE PO SCH (20:38)
[2021-02-24] MEDS: SENNOSIDES 1 TABLET PO SCH (20:39)
[2021-02-24] MEDS ORDERED: HEPARIN 5,000 UNIT/ML VIAL SQ SCH (21:00)
[2021-02-24] MEDS ORDERED: SENNOSIDES 1 TABLET PO SCH (21:00)
[2021-02-24] MEDS ORDERED: DOCUSATE SODIUM 100 MG CAPSULE PO SCH (21:00)
[2021-02-24] MEDS ORDERED: amLODIPine 5 MG TABLET PO SCH ×2 (21:00)
[2021-02-24 22:27] LABS: Hematocrit 28.3 % (41.0-55.0); Hemoglobin 10.1 g/dL (13.5-16.5); Mean Cell Volume 87.1 fL (80.0-100.0); Mean Corpuscular HGB Conc 35.7 g/dL (31.0-36.0); Platelet Count 208 K/mcL (140-440); RBC 3.25 M/mcL (4.50-5.90); WBC 11.3 K/mcL (4.5-11.0)
[2021-02-24 22:51] LABS: Blood Urea Nitrogen 144 mg/dL (8-23); Calcium 8.2 mg/dL (8.6-10.4); Carbon Dioxide 14 mmol/L (22-30); Chloride 97 mmol/L (96-108); Glomerular Filtration Rate 3; Glucose 280 mg/dL (70-105); Phosphorous 8.8 mg/dL (2.5-4.5)
[2021-02-25] MEDS: SODIUM BICARBONATE VIAL 150 MEQ in DEXTROSE 5% IN WATER 850 ML IV SCH ×2 (01:14→04:00)
[2021-02-25] MEDS: 0.45 % SODIUM CHLORIDE 1,000 ML IV SCH ×5 (03:03→15:08)
[2021-02-25] MEDS: DEXTROSE 5%-NS 1,000 ML IV SCH ×2 (04:02→10:05)
[2021-02-25] MEDS: ACETAMINOPHEN 325 MG TABLET PO PRN (05:20)
[2021-02-25] MEDS: 0.9 % SODIUM CHLORIDE 10 ML SYRINGE IV SCH ×5 (05:49→21:11)
[2021-02-25 06:16] LABS: Hematocrit 24.7 % (41.0-55.0); Mean Corpuscular HGB Conc 36.4 g/dL (31.0-36.0); Platelet Count 195 K/mcL (140-440); RBC 2.84 M/mcL (4.50-5.90); Red Cell Distribution Width 11.9 % (11.5-14.5); WBC 8.8 K/mcL (4.5-11.0)
[2021-02-25 07:17] LABS: ALT/SGPT 6 U/L (<40); AST/SGOT 7 U/L (<40); Albumin 3.2 gm/dL (3.2-5.2); Albumin/Globulin Ratio 1.2 (1.0-2.3); Alkaline Phosphatase 54 U/L (39-117); Bilirubin,Direct < 0.2 mg/dL (0-0.3); Bilirubin,Total 0.3 mg/dL (0.1-1.0); Blood Urea Nitrogen 131 mg/dL (8-23); Calcium 7.6 mg/dL (8.6-10.4); Carbon Dioxide 19 mmol/L (22-30); Chloride 100 mmol/L (96-108); Globulin 2.6 gm/dL (2.2-3.7); Glomerular Filtration Rate 4; Glucose 282 mg/dL (70-105); Lactate Dehydrogenase 183 U/L (135-225); Phosphorous 6.8 mg/dL (2.5-4.5); Triglycerides 97 mg/dL (<150); Uric Acid 13.5 mg/dL (2.5-8.0)
[2021-02-25] MEDS: INSULIN LISPRO 1 UNIT/0.01 ML UNIT SQ SCH ×5 (08:14→21:36)
[2021-02-25 09:44] LABS: Lymphocytes % 5 % (15-49); Monocytes % (Manual) 3 % (1-12); Platelet Estimate NORMAL (Normal); RBC Morphology NORMAL (Normal); Segmented Neutrophils % 92 % (38-78)
[2021-02-25] MEDS: cefTRIAXone 1 GM VIAL IV SCH (10:05)
[2021-02-25] MEDS: DOCUSATE SODIUM 100 MG CAPSULE PO SCH ×2 (10:05→21:10)
[2021-02-25] MEDS: HEPARIN 5,000 UNIT/ML VIAL SQ SCH ×2 (10:05→21:36)
[2021-02-25] MEDS: DEXTROSE 5%-NS W/20MEQ KCL 1,000 ML IV SCH ×2 (10:23→22:04)
--- NOTE | 2021-02-25 11:40 | General Surgery Progress Note ---
SUBJECTIVE Subjective Patient information: Note initiated : 02/25/21 at 11:35 am Service Date, if different from initiated Date: [] Patient: Finesse Beaver 65 y/o M admitted on 02/24/21 for weakness, GI upset. Chief Complaint: [] Interval history: Patient presently much more comfortable and tolerating p.o. as well as oral intake Patient did have episode of hypotension this morning but now stabilized in more recumbent position Labs drawn this morning show stability to improvement in renal function Constitutional Vitals: Vital Signs Temp Pulse Resp BP Pulse Ox 98.6 F 82 21 132/66 94 02/25/21 09:01 02/25/21 10:02 02/25/21 10:02 02/25/21 10:02 02/25/21 10:02 Period Temp Pulse Resp BP Sys/Sanon Pulse Ox Last 24 Hr 97.3 F-99.1 F 80-136 10-30 84-226/57-115 90-100 Intake and Output 02/24/21 02/25/21 02/25/21 21:59 05:59 13:59 Intake Total 3775 4981 3750 Output Total 4400 4140 2105 Balance -004 257 8303 Weight 282 lb 6.4 oz Intake & Output: Intake & Output 02/24/21 02/25/21 02/25/21 21:59 05:59 13:59 Intake Total 3775 4981 3750 Output Total 4400 4140 2105 Balance -168 512 5549 Weight 282 lb 6.4 oz Intake: IV 2775 4621 3270 Sodium Chloride 0.45% 1,000 ml 1800 1688 1270 @ Wide Open IV .Q0M CJ Rx#: [id number] Dextrose 5%-Ns IV Solution 1932 1000 000 ml @ 175 mls/hr IV .Q5H43M CJ Rx#:[id number] Sodium Bicarbonate Vial 150 Meq 875 1000 1000 In Dextrose 5% in Water 850 ml @ 125 mls/hr IV Q8H CJ Rx#: [id number] Oral 360 480 IV - Manual Only 1000 Output: Urine Catheter Amount 4400 4140 2105 Other: Meal Breakfast Percent of Meal Consumed 100% Urine Appearance Clear Clear Clear Small Blood Clots Uretheral (Saavedra) Hematuria Small Blood Clots Urine Color Blood Tinged Blood Tinged Blood Tinged Uretheral (Saavedra) Blood Tinged Urine Odor Normal Normal Additional findings Additional findings: Patient nontoxic and oriented Chest normal diaphragmatic surgeon Abdomen nontender Extremities edema decreased Saavedra catheter in place draining light blood-tinged urine without clots A/P Narrative A/P Narrative: Assessment: Continues to do well status post bilateral renal obstruction and renal failure with high output status Labs remain stable to improved with hemoglobin 9 Agree with nephrology and appreciate their assistance Plan Appreciate nephrology care and continue present management will drop after IV replacement and try to management with orals Stones and potential for medical management versus surgical management cuco chavis in light of his Yazidi status consideration for possible uric acid dissolution regimen We will continue to follow Time Spent With Patient Time: Total time spent is greater than 50% in coordination of care (as documented) at patient's floor/unit and/or counseling patient:
[2021-02-25 12:00] LABS: Basophils # (Auto) 0 K/mcL (0.00-0.20); Basophils % (Auto) 0 % (0.0-2.0); Eosinophils # (Auto) 0 K/mcL (0.00-0.70); Eosinophils % (Auto) 0 % (0.0-7.0); Hematocrit 24.6 % (41.0-55.0); Hemoglobin 8.8 g/dL (13.5-16.5); Lymphocytes # (Auto) 0.66 K/mcL (1.50-4.80); Lymphocytes % (Auto) 6.4 % (15.0-49.0); Mean Cell Volume 87.2 fL (80.0-100.0); Mean Corpuscular HGB Conc 35.8 g/dL (31.0-36.0); Monocytes # (Auto) 0.87 K/mcL (0.10-0.90); Monocytes % (Auto) 8.4 % (1.0-12.0); Neutrophils % (Auto) 85.2 % (38.0-78.0); Platelet Count 190 K/mcL (140-440); RBC 2.82 M/mcL (4.50-5.90); WBC 10.4 K/mcL (4.5-11.0)
[2021-02-25] MEDS ORDERED: DEXTROSE 5%-NS 1,000 ML IV SCH (12:00)
[2021-02-25 12:31] LABS: ALT/SGPT 5 U/L (<40); AST/SGOT 6 U/L (<40); Albumin 3.2 gm/dL (3.2-5.2); Albumin/Globulin Ratio 1.4 (1.0-2.3); Alkaline Phosphatase 50 U/L (39-117); Bilirubin,Direct < 0.2 mg/dL (0-0.3); Bilirubin,Total 0.3 mg/dL (0.1-1.0); Blood Urea Nitrogen 116 mg/dL (8-23); Calcium 7.1 mg/dL (8.6-10.4); Carbon Dioxide 21 mmol/L (22-30); Chloride 99 mmol/L (96-108); Globulin 2.3 gm/dL (2.2-3.7); Glomerular Filtration Rate 4; Glucose 260 mg/dL (70-105); Lactate Dehydrogenase 167 U/L (135-225); Phosphorous 6.3 mg/dL (2.5-4.5); Triglycerides 102 mg/dL (<150); Uric Acid 11.3 mg/dL (2.5-8.0)
--- NOTE | 2021-02-25 12:48 | Internal Med Progress Note ---
SUBJECTIVE Subjective Patient information: Note initiated : 02/25/21 at 12:47 pm Service Date, if different from initiated Date: [] Patient: Finesse Beaver 65 y/o M admitted on 02/24/21 for weakness, GI upset. Chief Complaint: [] Interval history: Mr. Beaver is a 65 year old male with a history of hypertension, non-insulin diabetes, CKD stage III, history of melanoma status post resection and immunotherapyno known recurrence, psoriasis who presented to the ED for nausea, vomiting and generally feeling unwell. Patient was found to be in renal failure with a creatinine of 16.3, anion gap metabolic acidosis, mild hyperkalemia. The patient had previous labs which showed a creatinine of 2.61 on February 07, 2021. Patient says that he was feeling okay up until about a week ago when he developed watery diarrhea which progressed to intractable na usea and vomiting. The patient experienced chills during this time but does not recall any fevers. The patient's diarrhea has resolved but he continues to have intractable vomiting and unable to keep down food or liquids. Patient says that he stopped urinating 2 to 3 days ago. Review of available documents show that the patient had an elevated creatinine in December 2019 of 1.61, repeat labs in January 2020 showed a creatinine of 1.65. Patient said he had labs drawn during a routine wellness visit on February 07, 2021. Creatinine at that time was 2.61. Hemoglobin was slightly decreased at 12.3. Hemoglobin A1c was 6.9. The patient was admitted for management and further up of acute renal failure. Workup included bilateral renal ultrasound suspicious for obstructing ureteral calculi then CT abd/pelvis confirming bilateral hydronephrosis with obstructing ureteral calculi. Urology consulted and placed bilateral ureteral stents. 02/25 Feels better today overall, improved appetite. Developed post obstructive diuresis requiring aggressive IV fluid replacement. Improving renal function. Constitutional Vitals: Vital Signs Temp Pulse Resp BP Pulse Ox 97.1 F 100 H 19 116/65 96 02/25/21 12:32 02/25/21 12:35 02/25/21 12:35 02/25/21 12:35 02/25/21 12:35 Period Temp Pulse Resp BP Sys/Sanon Pulse Ox Last 24 Hr 97.1 F-99.1 F 73-136 10-39 84-226/54-115 90-100 Intake and Output 02/24/21 02/25/21 02/25/21 21:59 05:59 13:59 Intake Total 3775 4981 4270 Output Total 4400 4140 2655 Balance -803 731 7063 Weight 128.094 kg Intake & Output: Intake & Output 02/24/21 02/25/21 02/25/21 21:59 05:59 13:59 Intake Total 3775 4981 4270 Output Total 4400 4140 2655 Balance -231 131 6182 Weight 128.094 kg Intake: IV 2775 4621 3790 Sodium Chloride 0.45% 1,000 ml 1800 1688 1457 @ Wide Open IV .Q0M CJ Rx#: [id number] Dextrose 5%-Ns IV Solution 1933 1333 000 ml @ 175 mls/hr IV .Q5H43M CJ Rx#:[id number] Sodium Bicarbonate Vial 150 Meq 875 1000 1000 In Dextrose 5% in Water 850 ml @ 125 mls/hr IV Q8H CJ Rx#: [id number] Oral 360 480 IV - Manual Only 1000 Output: Urine Catheter Amount 4400 4147 2655 Other: Meal Breakfast Percent of Meal Consumed 100% Urine Appearance Clear Clear Clear Small Blood Clots Uretheral ([place]) Hematuria Small Blood Clots Urine Color Blood Tinged Blood Tinged Pale Blood Tinged Uretheral ([place]) Blood Tinged Urine Odor Normal Normal Additional findings Additional findings: Head: Atraumatic, normal inspection. Eyes: normal appearance, no scleral icterus. Neck: full ROM Respiratory: no respiratory distress. Cardiovascular: normal rate and rhythm, S1, S2. GI/Abdominal: soft, nontender, no guarding, benton catheter present. Extremities: full range of motion, nontender. Neurological: CN II-XII intact, intact motor, intact sensation. Psychiatric: normal mood. Skin: warm, normal color OBJ DATA Labs CBC & Chem 7: 02/25/21 11:10 02/25/21 11:10 Labs: Abnormal Lab Results 02/25/21 02/25/21 02/25/21 11:10 11:10 04:51 WBC RBC 2.82 L 2.84 L Hgb 8.8 L 9.0 L Hct 24.6 L 24.7 L MCHC 36.4 H MPV 12.0 H 12.0 H Neut % (Auto) 85.2 H Lymph % (Auto) 6.4 L Lymph # (Auto) 0.66 L [place] # (Auto) Seg Neutrophils % 92 H Lymphocytes % 5 L Absolute Neutrophils 8.82 H Potassium Chloride Carbon Dioxide 21 L Anion Gap 19.0 H BUN 116 H* Creatinine 10.9 H* Glucose 260 H Uric Acid 11.3 H Calcium 7.1 L Phosphorus 6.3 H* Lactate Dehydrogenase Total Protein 5.5 L Triglycerides Urine Protein Urine Glucose (UA) Urine Ketones Ur Leukocyte Esterase Urine RBC Urine WBC Ur Random Creatinine Ur Random Chloride 02/25/21 02/24/21 02/24/21 04:50 21:09 21:08 WBC 11.3 H RBC 3.25 L Hgb 10.1 L Hct 28.3 L MCHC MPV 12.0 H Neut % (Auto) Lymph % (Auto) Lymph # (Auto) [place] # (Auto) Seg Neutrophils % Lymphocytes % Absolute Neutrophils Potassium Chloride Carbon Dioxide 19 L 14 L Anion Gap 20.0 H 26.0 H BUN 131 H* 144 H* Creatinine 12.3 H* 14.3 H* Glucose 282 H 280 H Uric Acid 13.5 H Calcium 7.6 L 8.2 L Phosphorus 6.8 H* 8.8 H* Lactate Dehydrogenase Total Protein 5.8 L Triglycerides Urine Protein Urine Glucose (UA) Urine Ketones Ur Leukocyte Esterase Urine RBC Urine WBC Ur Random Creatinine Ur Random Chloride 02/24/21 02/24/21 02/24/21 16:29 16:29 16:29 WBC RBC Hgb Hct MCHC MPV Neut % (Auto) Lymph % (Auto) Lymph # (Auto) [place] # (Auto) Seg Neutrophils % Lymphocytes % Absolute Neutrophils Potassium Chloride Carbon Dioxide Anion Gap BUN Creatinine Glucose Uric Acid Calcium Phosphorus Lactate Dehydrogenase Total Protein Triglycerides Urine Protein 100 A Urine Glucose (UA) 150 A Urine Ketones 5 A Ur Leukocyte Esterase 25 A Urine RBC > 182 H Urine WBC 10 H Ur Random Creatinine 27.9 L Ur Random Chloride 88 L 02/24/21 02/24/21 02/24/21 16:18 09:32 09:32 WBC 13.3 H RBC 3.48 L Hgb 10.8 L Hct 31.5 L MCHC MPV 11.6 H Neut % (Auto) Lymph % (Auto) 14.7 L Lymph # (Auto) [place] # (Auto) 1.18 H Seg Neutrophils % Lymphocytes % Absolute Neutrophils 10.11 H Potassium 5.5 H 5.2 H Chloride 95 L Carbon Dioxide 11 L 9 L* Anion Gap 32.0 H 33.0 H BUN 151 H* 161 H* Creatinine 15.5 H* 16.3 H* Glucose 184 H 122 H Uric Acid 14.6 H Calcium Phosphorus 11.7 H* Lactate Dehydrogenase 245 H Total Protein Triglycerides 178 H Urine Protein Urine Glucose (UA) Urine Ketones Ur Leukocyte Esterase Urine RBC Urine WBC Ur Random Creatinine Ur Random Chloride Meds: Medications Acetaminophen (Acetaminophen 325 Mg Tablet) 650 mg PO Q4HP PRN; Protocol PRN Reason: Per Pain Protocol Last Admin: 02/25/21 05:20 Dose: 650 mg Documented by: Dextrose (Dextrose 50% 50 Ml Vial) 0 ml IV UD PRN PRN Reason: Hypoglycemia Diagnostic Test (Pha) (Accu-Chek 1 Each Strip) 1 each FS ACHS [facility] Last Admin: 02/25/21 12:17 Dose: 1 each Documented by: Docusate Sodium (Docusate Sodium 100 Mg Capsule) 100 mg PO BID [facility] Last Admin: 02/25/21 10:05 Dose: 100 mg Documented by: Glucose (Dextrose 31 Gm Oral.Susp) 15 gm PO PRN PRN PRN Reason: Hypoglycemia Heparin Sodium (Porcine) (Heparin 5,000 Unit/Ml Vial) 5,000 unit SQ Q12 [facility] Last Admin: 02/25/21 10:05 Dose: 5,000 unit Documented by: Hydralazine HCl (Hydralazine 20 Mg/Ml Vial) 20 mg IV Q4-6HP PRN PRN Reason: Hypertension Last Admin: 02/24/21 16:51 Dose: 20 mg Documented by: Potassium Chloride/Dextrose/Sod Cl (Dextrose 5%-Ns W/20meq Kcl) 1,000 mls @ 84 mls/hr IV .[id number] [facility] Last Admin: 02/25/21 10:23 Dose: 84 mls/hr Documented by: Sodium Chloride (Sodium Chloride 0.45%) 1,000 mls @ 0 mls/hr IV .Q0M [facility] Last Admin: 02/25/21 12:01 Dose: 180 mls/hr Documented by: Dextrose/Sodium Chloride (Dextrose 5%-Ns Iv Solution) 1,000 mls @ 50 mls/hr IV .Q20H [facility] Last Admin: 02/25/21 12:03 Dose: Not Given Documented by: Insulin Glargine (Insulin Glargine, Human 1 Unit/0.01 Ml) 5 unit SQ DAILY CJ Insulin Human Lispro (Insulin Lispro 1 Unit/0.01 Ml Unit) 0 unit SQ ACHS [facility]; Protocol Last Admin: 02/25/21 08:14 Dose: 4 units Documented by: Labetalol HCl (Labetalol 5 Mg/Ml Ml) 20 mg IV Q10M PRN PRN Reason: Hypertension Ondansetron HCl (Ondansetron 4 Mg/2 Ml Vial) 4 mg IV Q6HP PRN PRN Reason: Nausea And Vomiting Senna (Sennosides 1 Tablet) 2 tab PO HS [facility] Last Admin: 02/24/21 20:39 Dose: 2 tab Documented by: Sodium Chloride (0.9 % Sodium Chloride 10 Ml Syringe) 10 ml IV Q8 [facility] Last Admin: 02/25/21 12:17 Dose: Not Given Documented by: Sodium Chloride (0.9 % Sodium Chloride 10 Ml Syringe) 10 ml IV Q8 [facility] Last Admin: 02/25/21 12:17 Dose: Not Given Documented by: A/P Narrative A/P Narrative: Assessment: 65-year-old male with a history of HTN, [id number], CKD III, history of renal stones, history of melanoma status post resection and immunotherapyno known recurrence, psoriasis admitted for acute on chronic failure. Initial work-up in the ED suggestive of bilateral hydronephrosis and p robably renal stones. Patient requested DNR code status. #Acute on chronic kidney disease stage III injury d/t obstructive nephropathy #Bilateral hydronephrosis d/t ureteral calculi s/p mars uretal stents (02/24) #Post-obstructive diuresis #Anion gap metabolic acidosis: improving #Hyperuricemia #Possible uric acid renal calculi #Acute on chronic anemia: likely dilutional #Diabetes mellitus #Essential hypertension #Hx of melanoma status post resection and immunotherapy in the 1990sno known recurrence #Plaque psoriasis #Obesity #Hyperkalemia: resolved #Hypertensive urgency: resolved Plan -Continue IV fluid, monitor urine output during POD, goal to replace 1/3 -1/2 of urine output for now. -Follow potassium and renal function closely. -Avoid nephrotoxic meds, renally dose meds. -Discontinue Norvasc now that patient has orthostatic hypotension. -Discontinue Ceftriaxone-UA not compelling for UTI. -Start Lantus and prandial Lispro, increase SSI to med. -Holding home lisinoprilhydrochlorothiazide, Metformin. -Urology following. -Nephrology following. -Telemetry while in PCU. -DVT PPx: Heparin SQ -CODE STATUS: DNR per patient's request. -Disposition: probably home when stable with nephrology and urology follow up, likely surgical ureteral calculus extraction at some point given large size and proximal locations. Time Spent With Patient Time: Total time spent is greater than 50% in coordination of care (as documented) at patient's floor/unit and/or counseling patient: QUALITY VTE Deep Vein Thrombosis/Pulmonary Embolism Present on Admission: No
[2021-02-25] MEDS: INSULIN GLARGINE, HUMAN 1 UNIT/0.01 ML SQ SCH (13:12)
[2021-02-25] MEDS ORDERED: POTASSIUM CHLORIDE 20 MEQ PACKET PO ONE (14:56)
[2021-02-25 15:39] LABS: Appearance,Urine HAZY (Clear); Bilirubin,Urine Negative (Negative); Color,Urine RED; Culture Indicated,Urine yes; Glucose,Urine (UA) 50 mg/dL (Negative); Ketones,Urine Negative (Negative); Leukocyte Esterase,Urine 25 /ug (Negative); Nitrate,Urine Negative (Negative); Protein,Urine 100 mg/dL (Negative); Specific Gravity,Urine 1.006 (1.000-1.035); Urine Blood >=1.0 mg/dL (Negative); Urine RBC > 182 /hpf (0-1); Urine Squamous Epithelial Cell 0 /hpf (0-4); Urine WBC 18 /hpf (0-4); Urobilinogen,Urine Negative
[2021-02-25] MEDS ORDERED: DEXTROSE 50% 50 ML VIAL IV PRN (16:11)
[2021-02-25] MEDS ORDERED: DEXTROSE 31 GM ORAL.SUSP PO PRN (16:11)
--- NOTE | 2021-02-25 17:54 | Nephrology Progress Note ---
SUBJECTIVE Subjective Patient information: Note initiated : 02/25/21 at 5:50 pm Service Date, if different from initiated Date: [] Patient: Finesse Beaver 65 y/o M admitted on 02/24/21 for weakness, GI upset. Chief Complaint: [ARF] Patient was admitted with acute renal failure, multiple metabolic abnormalities in the setting of bilateral obstructive uropathy. As he has a history of uric acid stones but these were heavily calcified stones on CT scanning Will require operative intervention For the time being bilateral stents placed for relief of obstruction Has developed some orthostatic tachycardia ~10 L postobstructive diuresis but large amounts of IV fluids have also been given Laboratory Tests 02/25/21 14:00 Urine pH 6.0 Ur Specific [place] 1.006 Urine Protein 100 A Urine Glucose (UA) 50 A Urine Ketones Negative Urine Nitrate Negative Ur Leukocyte Esterase 25 A Urine RBC > 182 H Urine WBC 18 H 02/25/21 02/25/21 02/25/21 11:10 11:10 13:19 Sodium 139 Potassium 3.5 Chloride 99 Carbon Dioxide 21 L Anion Gap 19.0 H BUN 116 H* Creatinine 10.9 H* GFR Calculation 4 Glucose 260 H Uric Acid 11.7 H Calcium 7.1 L Phosphorus 6.3 H* Magnesium 1.6 Total Bilirubin 0.3 AST 6 ALT 5 Alkaline Phosphatase 50 Lactate Dehydrogenase 167 Troponin T 0.02 Total Protein 5.5 L Albumin 3.2 Constitutional Vitals: Vital Signs Temp Pulse Resp BP Pulse Ox 36.2 C 84 20 147/93 96 02/25/21 16:01 02/25/21 16:01 02/25/21 16:01 02/25/21 16:01 02/25/21 16:01 Period Temp Pulse Resp BP Sys/Sanon Pulse Ox Last 24 Hr 36.2 C-37.0 C 73-136 11-39 84-188/54-106 90-97 Intake and Output 02/25/21 02/25/21 02/25/21 05:59 13:59 21:59 Intake Total 4981 5187 1205 Output Total 4140 3205 2450 Balance 841 1981 -124 Intake & Output: Intake & Output 02/25/21 02/25/21 02/25/21 05:59 13:59 21:59 Intake Total 4981 5187 1205 Output Total 4140 3205 2450 Balance 841 1981 -1245 Intake: IV 4621 4467 485 Sodium Chloride 0.45% 1,000 ml 0625 2138 485 @ Wide Open IV .Q0M CJ Rx#: [id number] Dextrose 5%-Ns IV Solution 1932 1333 000 ml @ 175 mls/hr IV .Q5H43M CJ Rx#:[id number] Sodium Bicarbonate Vial 150 Meq 1000 1000 In Dextrose 5% in Water 850 ml @ 125 mls/hr IV Q8H CJ Rx#: [id number] Oral 360 720 720 Output: Urine Catheter Amount 4140 3205 2450 Other: Meal Breakfast Lunch Percent of Meal Consumed 100% 25% Feeding Ability Independent Urine Appearance Clear Clear Clear Small Blood Clots Urine Color Blood Tinged Pale Pale Blood Tinged Blood Tinged Urine Odor Normal Stool Size Moderate Small Stool Color Brown Brown Stool Consistency Liquid Soft Liquid # Bowel Movements 1 # of times incontinent of 1 Bowels General appearance: average body habitus and no acute distress Head Head exam: Present atraumatic and normocephalic Eye Eye exam: Present EOMI and PERRL; Absent periorbital swelling and scleral icterus ENT ENT exam: Present mucous membranes dry Neck Neck exam: Present full ROM and normal inspection Respiratory Respiratory exam: Present normal respiratory exam and CTAB Cardiovascular Cardiovascular exam: Present normal rate and rhythm, RRR, +S1 and +S2; Absent JVD, rubs, +S3 and systolic murmur GI/Abdominal GI/Abdominal exam: Present normal bowel sounds Additional comments: Saavedra with blood-tinged urine Extremities Exam Extremities exam: Present pedal edema (Trace); Absent calf tenderness Neurological Exam Neurological exam: Present alert, CN II-XII intact and oriented X3 Psychiatric Psychiatric exam: Present normal affect and normal mood Skin Skin exam: Present normal color and warm; Absent petechiae and rash A/P Time Spent With Patient Time: A/P Assessment and plan (1) Acute renal failure: (2) Acute hyperkalemia: (3) Metabolic acidosis with increased anion gap and accumulation of organic acids: (4) Acute bilateral obstructive uropathy: A/P Narrative: This patient has a 1 month history of acute renal failure primarily due to bilateral obstructive uropathy from kidney stones as demonstrated on today's imaging. Lisinopril was contributing to worsening GFR by interfering with renal autoregulation of blood flow Metformin was contributing to the obstruction related type IV RTA (not anion gap) by causing a lactic acidosis due to its administration in a patient with GFR less than 10 cc/min. Anticipate all this will improve in the next 24 to 72 hours Anticipate that he will require potassium replacement as his acidosis is corrected. Acute bilateral stent deployment Surgical intervention for definitive management of obstruction to follow Total time spent with greater than 50% in coordination of care (as documented) at patient's floor/unit and/or counseling patient:: Greater than 35 minutes
[2021-02-25] MEDS ORDERED: 0.9 % SODIUM CHLORIDE 250 ML IV PRN (18:16)
[2021-02-25 19:24] LABS: Blood Urea Nitrogen 107 mg/dL (8-23); Calcium 7.1 mg/dL (8.6-10.4); Carbon Dioxide 20 mmol/L (22-30); Chloride 100 mmol/L (96-108); Glomerular Filtration Rate 5; Glucose 194 mg/dL (70-105)
[2021-02-25] MEDS: SENNOSIDES 1 TABLET PO SCH (21:11)
[2021-02-25] MEDS ORDERED: INSULIN LISPRO 1 UNIT/0.01 ML UNIT SQ ONE (21:33)
[2021-02-26 01:33] LABS: Blood Urea Nitrogen 99 mg/dL (8-23); Carbon Dioxide 23 mmol/L (22-30); Chloride 106 mmol/L (96-108); Glomerular Filtration Rate 6; Glucose 136 mg/dL (70-105)
[2021-02-26] MEDS ORDERED: POTASSIUM CHLORIDE 20 MEQ TABLET PO ONE ×2 (01:34→01:41)
[2021-02-26] MEDS: 0.9 % SODIUM CHLORIDE 10 ML SYRINGE IV SCH ×3 (05:22→21:31)
[2021-02-26 06:11] LABS: Hemoglobin 8.8 g/dL (13.5-16.5); Mean Cell Volume 88.7 fL (80.0-100.0); Mean Corpuscular HGB Conc 35.2 g/dL (31.0-36.0); Mean Platelet Volume 11.8 fL (7.4-10.4); Platelet Count 188 K/mcL (140-440); RBC 2.82 M/mcL (4.50-5.90); Red Cell Distribution Width 12.2 % (11.5-14.5); WBC 10.2 K/mcL (4.5-11.0)
[2021-02-26 06:50] LABS: ALT/SGPT 7 U/L (<40); AST/SGOT 8 U/L (<40); Albumin 3.3 gm/dL (3.2-5.2); Albumin/Globulin Ratio 1.3 (1.0-2.3); Alkaline Phosphatase 50 U/L (39-117); Bilirubin,Direct < 0.2 mg/dL (0-0.3); Bilirubin,Total 0.3 mg/dL (0.1-1.0); Blood Urea Nitrogen 94 mg/dL (8-23); Calcium 7.2 mg/dL (8.6-10.4); Carbon Dioxide 24 mmol/L (22-30); Chloride 109 mmol/L (96-108); Globulin 2.5 gm/dL (2.2-3.7); Glomerular Filtration Rate 7; Glucose 149 mg/dL (70-105); Lactate Dehydrogenase 183 U/L (135-225); Phosphorous 5.3 mg/dL (2.5-4.5); Triglycerides 130 mg/dL (<150); Uric Acid 9.6 mg/dL (2.5-8.0)
--- NOTE | 2021-02-26 07:18 | Nephrology Progress Note ---
SUBJECTIVE Subjective Patient information: Note initiated : 02/26/21 at 7:17 am Service Date, if different from initiated Date: [] Patient: Finesse Beaver 65 y/o M admitted on 02/24/21 for weakness, GI upset. Chief Complaint: [Nausea and vomiting] Interval history: Acute renal failure in the setting of bilateral obstructive uropathy Concomitant lisinopril HCT use Concomitant Metformin use [place] Improving GFR after bilateral stent deployment on Wednesday February 24, 2021 Laboratory Tests 02/26/21 13:11 Sodium 149 H Potassium 3.3 Chloride 109 H Carbon Dioxide 24 BUN 94 H Creatinine 7.8 H* GFR Calculation 7 Glucose 149 H Uric Acid 9.6 H Calcium 7.2 L Phosphorus 5.3 H Magnesium 1.4 L Lactate Dehydrogenase 183 Serum creatinine As a JH we will NOT accept pRBCs but will allow KWADWO therapy. Could pre-bank his own blood prior to elective surgery Constitutional Vitals: Vital Signs Temp Pulse Resp BP Pulse Ox 36.8 C 70 16 156/69 96 02/26/21 04:02 02/26/21 06:00 02/26/21 06:00 02/26/21 05:02 02/26/21 06:00 Period Temp Pulse Resp BP Sys/Sanon Pulse Ox Last 24 Hr 36.2 C-37.0 C 70-136 16-39 84-172/54-93 86-98 Intake and Output 02/25/21 02/26/21 02/26/21 21:59 05:59 13:59 Intake Total 2043 2668 Output Total 4120 3770 Balance -2076110 Weight 130.362 kg Intake & Output: Intake & Output 02/25/21 02/26/21 02/26/21 21:59 05:59 13:59 Intake Total 2043 2668 Output Total 4120 3770 Balance -2076 -1102 Weight 130.362 kg Intake: IV 1323 1648 Sodium Chloride 0.45% 1,000 ml 1323 @ Wide Open IV .Q0M CJ Rx#: [id number] Dextrose 5%-Ns IV Solution 1, 667 000 ml @ 175 mls/hr IV .Q5H43M CJ Rx#:[id number] Dextrose 5%-Ns W/20Meq KCl 1, 981 000 ml @ 84 mls/hr IV .[id number] CJ Rx#:[id number] Oral 720 1020 Output: Urine Catheter Amount 1938 8960 Other: Meal Dinner Percent of Meal Consumed 100% Feeding Ability Independent Urine Appearance Clear Clear Urine Color Blood Tinged Blood Tinged Urine Odor Normal Stool Size Small Stool Color Brown Stool Consistency Soft Liquid # Bowel Movements 1 # of times incontinent of 1 Bowels General appearance: no acute distress and obese Head Head exam: Present atraumatic and normal inspection Eye Eye exam: Present EOMI and PERRL; Absent nystagmus ENT ENT exam: Present mucous membranes moist and normal exam Neck Neck exam: Present full ROM and normal inspection; Absent meningismus Respiratory Respiratory exam: Present normal respiratory exam and CTAB Cardiovascular Cardiovascular exam: Present normal rate and rhythm, +S1 and +S2; Absent JVD, +S3, systolic murmur and tachycardia GI/Abdominal GI/Abdominal exam: Present normal bowel sounds and soft Additional comments: Bilateral double-J stents with Saavedra draining blood-tinged urine Neurological Exam Neurological exam: Present alert, CN II-XII intact and oriented X3 Psychiatric Psychiatric exam: Present normal affect and normal mood Skin Skin exam: Present dry, intact and normal color; Absent petechiae A/P Assessment and plan (1) Acute bilateral obstructive uropathy: Status: Acute (2) Metabolic acidosis with increased anion gap and accumulation of organic acids: Status: Acute (3) Acute hyperkalemia: Status: Acute (4) Nausea & vomiting: Status: Acute Qualifiers: Vomiting Intractability: intractable Vomiting type: unspecified Qualified Code(s): R11.2 - Nausea with vomiting, unspecified (5) Bilateral kidney stones: Status: Acute Narrative A/P Narrative: Assessment and plan (1) Acute renal failure: (2) Acute hyperkalemia: (3) Metabolic acidosis with increased anion gap and accumulation of organic acids: (4) Acute bilateral obstructive uropathy: Narrative: This patient has a 1 month history of acute renal failure primarily due to bilateral obstructive uropathy from kidney stones as demonstrated on today's imaging. Lisinopril was contributing to worsening GFR by interfering with renal autoregulation of blood flow Metformin was contributing to the obstruction related type IV RTA (not anion gap) by causing a lactic acidosis due to its administration in a patient with GFR less than 10 cc/min. Anticipate all this will improve but cannot be assured of return to normal GFR, depends how long obstruction has been present Anticipate that he will require potassium replacement as his acidosis is co rrected. Replace 0.5 cc/cc UOP with 0.45 NS with 20/mEq/l JCl Replace Mg prn Acute bilateral stent deployment Surgical intervention for definitive management of obstruction to follow, complicated by Jehovah witness christianity believes and desire not to receive packed red blood cells. Could bank his own blood preoperatively Will accept KWADWO therapy Time Spent With Patient Time: Total time spent is greater than 50% in coordination of care (as documented) at patient's floor/unit and/or counseling patient: Total time spent with greater than 50% in coordination of care (as documented) at patient's floor/unit and/or counseling patient:: Greater than 35 minutes
[2021-02-26] MEDS ORDERED: MAGNESIUM SULFATE 2 GM/50 ML BAG IV ONE ×2 (07:26→08:43)
[2021-02-26] MEDS ORDERED: POTASSIUM CHLORIDE 20 MEQ in 0.45 % SODIUM CHLORIDE 1,000 ML IV SCH ×2 (07:30→17:43)
[2021-02-26] MEDS: INSULIN LISPRO 1 UNIT/0.01 ML UNIT SQ SCH ×7 (07:38→21:07)
[2021-02-26] MEDS: INSULIN GLARGINE, HUMAN 1 UNIT/0.01 ML SQ SCH (07:39)
--- NOTE | 2021-02-26 07:58 | General Surgery Progress Note ---
SUBJECTIVE Subjective Patient information: Note initiated : 02/26/21 at 7:55 am Service Date, if different from initiated Date: [] Patient: Finesse Beaver 65 y/o M admitted on 02/24/21 for weakness, GI upset. Chief Complaint: [] Interval history: Presently comfortable and eating well No new complaints with catheter in place Constitutional Vitals: Vital Signs Temp Pulse Resp BP Pulse Ox 98.3 F 70 16 156/69 96 02/26/21 04:02 02/26/21 06:00 02/26/21 06:00 02/26/21 05:02 02/26/21 06:00 Period Temp Pulse Resp BP Sys/Sanon Pulse Ox Last 24 Hr 97.1 F-98.6 F 70-136 16-39 84-172/54-93 86-98 Intake and Output 02/25/21 02/26/21 02/26/21 21:59 05:59 13:59 Intake Total 2043 2668 Output Total 4120 3770 Balance -2077 -1102 Weight 287 lb 6.4 oz Intake & Output: Intake & Output 02/25/21 02/26/21 02/26/21 21:59 05:59 13:59 Intake Total 2043 2668 Output Total 4120 3770 Balance -2077 -1102 Weight 287 lb 6.4 oz Intake: IV 1323 1648 Sodium Chloride 0.45% 1,000 ml 1323 @ Wide Open IV .Q0M CJ Rx#: [id number] Dextrose 5%-Ns IV Solution 1, 667 000 ml @ 175 mls/hr IV .Q5H43M CJ Rx#:[id number] Dextrose 5%-Ns W/20Meq KCl 1, 981 000 ml @ 84 mls/hr IV .[id number] CJ Rx#:[id number] Oral 720 1020 Output: Urine Catheter Amount 4120 3770 Other: Meal Dinner Percent of Meal Consumed 100% Feeding Ability Independent Urine Appearance Clear Clear Urine Color Blood Tinged Blood Tinged Urine Odor Normal Stool Size Small Stool Color Brown Stool Consistency Soft Liquid # Bowel Movements 1 # of times incontinent of 1 Bowels Additional findings Additional findings: Sitting comfortably and eating breakfast without difficulty No abdominal new complaints and Saavedra catheter in place draining light pink- tinged urine without clots A/P Narrative A/P Narrative: Assessment: Renal failure continue to improve slowly with reasonably controlled blood pressure and tolerating statins well Plan: Continue nephrology management medically and assessment subsequently as to help for medical management of stones or potential surgical management how bit difficult situation with Shinto status We will have to monitor BPH status dysuria stents in place reflexes not renal toxic wants fluid management issues better controlled We will continue to follow Time Spent With Patient Time: Total time spent is greater than 50% in coordination of care (as documented) at patient's floor/unit and/or counseling patient:
[2021-02-26] MEDS: HEPARIN 5,000 UNIT/ML VIAL SQ SCH ×2 (08:23→21:07)
[2021-02-26] MEDS: DOCUSATE SODIUM 100 MG CAPSULE PO SCH ×2 (08:23→21:06)
[2021-02-26 08:31] LABS: Lymphocytes % 14 % (15-49); Monocytes % (Manual) 4 % (1-12); Platelet Estimate NORMAL (Normal); RBC Morphology NORMAL (Normal); Segmented Neutrophils % 82 % (38-78)
--- NOTE | 2021-02-26 08:43 | Internal Med Progress Note ---
SUBJECTIVE Subjective Patient information: Note initiated : 02/26/21 at 8:42 am Service Date, if different from initiated Date: [] Patient: Finesse Beaver 65 y/o M admitted on 02/24/21 for weakness, GI upset. Chief Complaint: [] Interval history: Mr. Beaver is a 65 year old male with a history of hypertension, non-insulin diabetes, CKD stage III, history of melanoma status post resection and immunotherapyno known recurrence, psoriasis who presented to the ED for nausea, vomiting and generally feeling unwell. Patient was found to be in renal failure with a creatinine of 16.3, anion gap metabolic acidosis, mild hyperkalemia. The patient had previous labs which showed a creatinine of 2.61 on February 07, 2021. Patient says that he was feeling okay up until about a week ago when he developed watery diarrhea which progressed to intractable xuan sea and vomiting. The patient experienced chills during this time but does not recall any fevers. The patient's diarrhea has resolved but he continues to have intractable vomiting and unable to keep down food or liquids. Patient says that he stopped urinating 2 to 3 days ago. Review of available documents show that the patient had an elevated creatinine in December 2019 of 1.61, repeat labs in January 2020 showed a creatinine of 1.65. Patient said he had labs drawn during a routine wellness visit on February 07, 2021. Creatinine at that time was 2.61. Hemoglobin was slightly decreased at 12.3. Hemoglobin A1c was 6.9. The patient was admitted for management and further up of acute renal failure. Workup included bilateral renal ultrasound suspicious for obstructing ureteral calculi then CT abd/pelvis confirming bilateral hydronephrosis with obstructing ureteral calculi. Urology consulted and placed bilateral ureteral stents. 02/25 Feels better today overall, improved appetite. Developed post obstructive diuresis requiring aggressive IV fluid replacement. Improving renal function. 02/26 Renal function continues to improve, polyuric reflecting ongoing post obstructive diuresis. Hypernatremia developed-increased 1/2 NS, repeat BMP later. Metabolic acidosis resolved. Low Mg replaced. Hypocalcemia noted, Vitamin 25-OH D low 9.17, started high dose vitamin D supplementation. Anticipate benton catheter can be removed later today or tomorrow. Head: Atraumatic, normal inspection. Eyes: normal appearance, no scleral icterus. Neck: full ROM Respiratory: no respiratory distress. Cardiovascular: normal rate and rhythm, S1, S2. GI/Abdominal: soft, nontender, no guarding, Benton catheter present. Extremities: full range of motion, nontender. Neurological: CN II-XII intact, intact motor, intact sensation. Psychiatric: normal mood. Skin: warm, normal color Constitutional Vitals: Vital Signs Temp Pulse Resp BP Pulse Ox 98.3 F 70 16 156/69 96 02/26/21 04:02 02/26/21 06:00 02/26/21 06:00 02/26/21 05:02 02/26/21 06:00 Period Temp Pulse Resp BP Sys/Sanon Pulse Ox Last 24 Hr 97.1 F-98.6 F 70-122 16-39 106-172/54-93 86-98 Intake and Output 02/25/21 02/26/21 02/26/21 21:59 05:59 13:59 Intake Total 2043 2668 Output Total 4120 3770 Balance -2077 -1102 Weight 130.362 kg Intake & Output: Intake & Output 02/25/21 02/26/21 02/26/21 21:59 05:59 13:59 Intake Total 2043 2668 Output Total 4120 3770 Balance -2077 -1102 Weight 130.362 kg Intake: IV 1323 1648 Sodium Chloride 0.45% 1,000 ml 1323 @ Wide Open IV .Q0M CJ Rx#: [id number] Dextrose 5%-Ns IV Solution 1, 667 000 ml @ 175 mls/hr IV .[id number] CJ Rx#:[id number] Dextrose 5%-Ns W/20Meq KCl 1, 981 000 ml @ 84 mls/hr IV .[id number] CJ Rx#:[id number] Oral 720 1020 Output: Urine Catheter Amount 4120 3770 Other: Meal Dinner Percent of Meal Consumed 100% Feeding Ability Independent Urine Appearance Clear Clear Urine Color Blood Tinged Blood Tinged Urine Odor Normal Stool Size Small Stool Color Brown Stool Consistency Soft Liquid # Bowel Movements 1 # of times incontinent of 1 Bowels OBJ DATA Labs CBC & Chem 7: 02/26/21 04:44 02/26/21 12:15 Labs: Abnormal Lab Results 02/26/21 02/26/21 02/26/21 05:19 04:44 04:44 WBC RBC 2.82 L Hgb 8.8 L Hct 25.0 L MCHC MPV 11.8 H Neut % (Auto) Lymph % (Auto) Lymph # (Auto) Andrew # (Auto) Seg Neutrophils % 82 H Lymphocytes % 14 L Absolute Neutrophils Sodium 149 H Potassium Chloride 109 H Carbon Dioxide Anion Gap BUN 94 H Creatinine 7.8 H* Glucose 149 H Uric Acid 9.6 H Calcium 7.2 L Phosphorus 5.3 H Magnesium 1.4 L Lactate Dehydrogenase Total Protein 5.8 L Triglycerides 25-OH Vitamin D Total 9.17 L Urine Appearance Urine Protein Urine Glucose (UA) Urine Ketones Urine Occult Blood Ur Leukocyte Esterase Urine RBC Urine WBC Ur Random Creatinine Ur Random Chloride 02/26/21 02/25/21 02/25/21 00:17 17:55 14:00 WBC RBC Hgb Hct MCHC MPV Neut % (Auto) Lymph % (Auto) Lymph # (Auto) Andrew # (Auto) Seg Neutrophils % Lymphocytes % Absolute Neutrophils Sodium Potassium 3.2 L Chloride Carbon Dioxide 20 L Anion Gap 19.0 H BUN 99 H 107 H* Creatinine 8.8 H* 9.6 H* Glucose 136 H 194 H Uric Acid Calcium 7.0 L 7.1 L Phosphorus Magnesium Lactate Dehydrogenase Total Protein Triglycerides 25-OH Vitamin D Total Urine Appearance Hazy A Urine Protein 100 A Urine Glucose (UA) 50 A Urine Ketones Urine Occult Blood >=1.0 A Ur Leukocyte Esterase 25 A Urine RBC > 182 H Urine WBC 18 H Ur Random Creatinine Ur Random Chloride 02/25/21 02/25/21 02/25/21 11:10 11:10 11:10 WBC RBC 2.82 L Hgb 8.8 L Hct 24.6 L MCHC MPV 12.0 H Neut % (Auto) 85.2 H Lymph % (Auto) 6.4 L Lymph # (Auto) 0.66 L Andrew # (Auto) Seg Neutrophils % Lymphocytes % Absolute Neutrophils 8.82 H Sodium Potassium Chloride Carbon Dioxide 21 L Anion Gap 19.0 H BUN 116 H* Creatinine 10.9 H* Glucose 260 H Uric Acid 11.7 H 11.3 H Calcium 7.1 L Phosphorus 6.3 H* Magnesium Lactate Dehydrogenase Total Protein 5.5 L Triglycerides 25-OH Vitamin D Total Urine Appearance Urine Protein Urine Glucose (UA) Urine Ketones Urine Occult Blood Ur Leukocyte Esterase Urine RBC Urine WBC Ur Random Creatinine Ur Random Chloride 02/25/21 02/25/21 02/24/21 04:51 04:50 21:09 WBC RBC 2.84 L Hgb 9.0 L Hct 24.7 L MCHC 36.4 H MPV 12.0 H Neut % (Auto) Lymph % (Auto) Lymph # (Auto) Andrew # (Auto) Seg Neutrophils % 92 H Lymphocytes % 5 L Absolute Neutrophils Sodium Potassium Chloride Carbon Dioxide 19 L 14 L Anion Gap 20.0 H 26.0 H BUN 131 H* 144 H* Creatinine 12.3 H* 14.3 H* Glucose 282 H 280 H Uric Acid 13.5 H Calcium 7.6 L 8.2 L Phosphorus 6.8 H* 8.8 H* Magnesium Lactate Dehydrogenase Total Protein 5.8 L Triglycerides 25-OH Vitamin D Total Urine Appearance Urine Protein Urine Glucose (UA) Urine Ketones Urine Occult Blood Ur Leukocyte Esterase Urine RBC Urine WBC Ur Random Creatinine Ur Random Chloride 02/24/21 02/24/21 02/24/21 21:08 16:29 16:29 WBC 11.3 H RBC 3.25 L Hgb 10.1 L Hct 28.3 L MCHC MPV 12.0 H Neut % (Auto) Lymph % (Auto) Lymph # (Auto) Andrew # (Auto) Seg Neutrophils % Lymphocytes % Absolute Neutrophils Sodium Potassium Chloride Carbon Dioxide Anion Gap BUN Creatinine Glucose Uric Acid Calcium Phosphorus Magnesium Lactate Dehydrogenase Total Protein Triglycerides 25-OH Vitamin D Total Urine Appearance Urine Protein 100 A Urine Glucose (UA) 150 A Urine Ketones 5 A Urine Occult Blood Ur Leukocyte Esterase 25 A Urine RBC > 182 H Urine WBC 10 H Ur Random Creatinine Ur Random Chloride 88 L 02/24/21 02/24/21 02/24/21 16:29 16:18 09:32 WBC RBC Hgb Hct MCHC MPV Neut % (Auto) Lymph % (Auto) Lymph # (Auto) Andrew # (Auto) Seg Neutrophils % Lymphocytes % Absolute Neutrophils Sodium Potassium 5.5 H 5.2 H Chloride 95 L Carbon Dioxide 11 L 9 L* Anion Gap 32.0 H 33.0 H BUN 151 H* 161 H* Creatinine 15.5 H* 16.3 H* Glucose 184 H 122 H Uric Acid 14.6 H Calcium Phosphorus 11.7 H* Magnesium Lactate Dehydrogenase 245 H Total Protein Triglycerides 178 H 25-OH Vitamin D Total Urine Appearance Urine Protein Urine Glucose (UA) Urine Ketones Urine Occult Blood Ur Leukocyte Esterase Urine RBC Urine WBC Ur Random Creatinine 27.9 L Ur Random Chloride 02/24/21 09:32 WBC 13.3 H RBC 3.48 L Hgb 10.8 L Hct 31.5 L MCHC MPV 11.6 H Neut % (Auto) Lymph % (Auto) 14.7 L Lymph # (Auto) Andrew # (Auto) 1.18 H Seg Neutrophils % Lymphocytes % Absolute Neutrophils 10.11 H Sodium Potassium Chloride Carbon Dioxide Anion Gap BUN Creatinine Glucose Uric Acid Calcium Phosphorus Magnesium Lactate Dehydrogenase Total Protein Triglycerides 25-OH Vitamin D Total Urine Appearance Urine Protein Urine Glucose (UA) Urine Ketones Urine Occult Blood Ur Leukocyte Esterase Urine RBC Urine WBC Ur Random Creatinine Ur Random Chloride Meds: Medications Acetaminophen (Acetaminophen 325 Mg Tablet) 650 mg PO Q4HP PRN; Protocol PRN Reason: Per Pain Protocol Last Admin: 02/25/21 05:20 Dose: 650 mg Documented by: Dextrose (Dextrose 50% 50 Ml Vial) 0 ml IV UD PRN PRN Reason: Hypoglycemia Dextrose (Dextrose 50% 50 Ml Vial) 0 ml IV UD PRN PRN Reason: Hypoglycemia Diagnostic Test (Pha) (Accu-Chek 1 Each Strip) 1 each FS ACHS [facility] Last Admin: 02/26/21 07:38 Dose: 1 each Documented by: Docusate Sodium (Docusate Sodium 100 Mg Capsule) 100 mg PO BID [facility] Last Admin: 02/26/21 08:23 Dose: 100 mg Documented by: Glucose (Dextrose 31 Gm Oral.Susp) 15 gm PO PRN PRN PRN Reason: Hypoglycemia Glucose (Dextrose 31 Gm Oral.Susp) 15 gm PO PRN PRN PRN Reason: Hypoglycemia Heparin Sodium (Porcine) (Heparin 5,000 Unit/Ml Vial) 5,000 unit SQ Q12 [facility] Last Admin: 02/26/21 08:23 Dose: 5,000 unit Documented by: Potassium Chloride/Dextrose/Sod Cl (Dextrose 5%-Ns W/20meq Kcl) 1,000 mls @ 84 mls/hr IV .[id number] [facility] Last Admin: 02/25/21 22:04 Dose: 84 mls/hr Documented by: Sodium Chloride (Sodium Chloride 0.9%) 250 mls @ 0 mls/hr IV ONCE PRN PRN Reason: Hypotension Potassium Chloride 20 meq/ (Sodium Chloride) 1,010 mls @ 84 mls/hr IV .Q12H2M [facility] Stop: 02/27/21 07:32 Magnesium Sulfate (Magnesium Sulfate) 2 gm in 50 mls @ 25 mls/hr IV ONCE ONE Stop: 02/26/21 09:25 Last Admin: 02/26/21 08:17 Dose: 25 mls/hr Documented by: Insulin Glargine (Insulin Glargine, Human 1 Unit/0.01 Ml) 5 unit SQ DAILY [facility] Last Admin: 02/26/21 07:39 Dose: 5 units Documented by: Insulin Human Lispro (Insulin Lispro 1 Unit/0.01 Ml Unit) 3 unit SQ AC [facility] Last Admin: 02/26/21 07:38 Dose: 3 unit Documented by: Insulin Human Lispro (Insulin Lispro 1 Unit/0.01 Ml Unit) 0 unit SQ ACHS [facility]; Protocol Last Admin: 02/26/21 07:39 Dose: 2 unit Documented by: Ondansetron HCl (Ondansetron 4 Mg/2 Ml Vial) 4 mg IV Q6HP PRN PRN Reason: Nausea And Vomiting Senna (Sennosides 1 Tablet) 2 tab PO HS [facility] Last Admin: 02/25/21 21:11 Dose: Not Given Documented by: Sodium Chloride (0.9 % Sodium Chloride 10 Ml Syringe) 10 ml IV Q8 [facility] Last Admin: 02/26/21 05:22 Dose: 10 ml Documented by: A/P Narrative A/P Narrative: Assessment: 65-year-old male with a history of HTN, [id number], CKD III, history of renal stones, history of melanoma status post resection and immunotherapyno known recurrence, psoriasis admitted for acute on chronic failure secondary to bilateral obstructing ureteral calculi s/p bilateral stents on 02/24 followed by improvement in renal function however complicated by post operative diuresis. #Acute on chronic kidney disease stage III injury d/t obstructive nephropathy: improving #Bilateral hydronephrosis d/t ureteral calculi s/p mars uretal stents (02/24) #Post-obstructive diuresis #Hypernatremia #Hyperuricemia #Possible uric acid renal calculi #Acute on chronic anemia: likely dilutional #Vitamin D deficiency #Hypocalcemia #Diabetes mellitus #Essential hypertension #Hx of melanoma status post resection and immunotherapy in the 1990sno known recurrence #Plaque psoriasis #Obesity #Anion gap metabolic acidosis #Hyperkalemia: resolved #Hypertensive urgency: resolved Plan -1/2 NS+KCL IV fluid, replacing 1/2 urine output per nephrology -Follow urine output and renal function. -Follow and replace electrolytes prn. -Avoid nephrotoxic meds, renally dose meds. -Lantus, prandial Lispro, SSI-med. -Holding home lisinoprilhydrochlorothiazide, Metformin. -Nephrology following. -Vitamin D supplementation. -Telemetry while in PCU. -Urology was consulted. -Remove benton catheter when able. -DVT PPx: Heparin SQ -CODE STATUS: DNR per patient's request. -Disposition: probably home when stable with nephrology and urology follow up, likely surgical ureteral calculus extraction at some point given large size and proximal locations. Time Spent With Patient Time: Total time spent is greater than 50% in coordination of care (as documented) at patient's floor/unit and/or counseling patient: QUALITY VTE Deep Vein Thrombosis/Pulmonary Embolism Present on Admission: No
[2021-02-26] MEDS ORDERED: ERGOCALCIFEROL (VITAMIN D2) 50,000 UNIT CAPSULE PO SCH (09:00)
[2021-02-26] MEDS: POTASSIUM CHLORIDE 20 MEQ in 0.45 % SODIUM CHLORIDE 1,000 ML IV SCH ×2 (09:15→17:21)
[2021-02-26] MEDS: DEXTROSE 5%-NS W/20MEQ KCL 1,000 ML IV SCH ×2 (09:59→21:30)
[2021-02-26 13:24] LABS: Blood Urea Nitrogen 84 mg/dL (8-23); Carbon Dioxide 24 mmol/L (22-30); Chloride 105 mmol/L (96-108); Glomerular Filtration Rate 8; Glucose 216 mg/dL (70-105)
[2021-02-26] MEDS: SENNOSIDES 1 TABLET PO SCH (21:06)
[2021-02-27] MEDS: 0.9 % SODIUM CHLORIDE 10 ML SYRINGE IV SCH ×3 (05:07→21:18)
[2021-02-27 06:07] LABS: Hematocrit 28.9 % (41.0-55.0); Hemoglobin 9.7 g/dL (13.5-16.5); Mean Cell Volume 92.6 fL (80.0-100.0); Mean Corpuscular HGB Conc 33.6 g/dL (31.0-36.0); Mean Platelet Volume 11.6 fL (7.4-10.4); Platelet Count 213 K/mcL (140-440); RBC 3.12 M/mcL (4.50-5.90); Red Cell Distribution Width 12.4 % (11.5-14.5); WBC 11.1 K/mcL (4.5-11.0)
[2021-02-27 06:30] LABS: Albumin 3.5 gm/dL (3.2-5.2); Calcium 7.8 mg/dL (8.6-10.4); Phosphorous 4.5 mg/dL (2.5-4.5)
[2021-02-27] MEDS ORDERED: MAGNESIUM SULFATE 2 GM/50 ML BAG IV ONE (06:51)
[2021-02-27 07:25] LABS: Eosinophils % (Manual) 3 % (0-7); Lymphocytes % 22 % (15-49); Monocytes % (Manual) 8 % (1-12); Platelet Estimate NORMAL (Normal); RBC Morphology NORMAL (Normal); Segmented Neutrophils % 67 % (38-78)
--- NOTE | 2021-02-27 07:44 | Nephrology Progress Note ---
SUBJECTIVE Subjective Patient information: Note initiated : 02/27/21 at 7:43 am Service Date, if different from initiated Date: [] Patient: Finesse Beaver 65 y/o M admitted on 02/24/21 for weakness, GI upset. Chief Complaint: [Nausea and vomiting] This patient with previous history of nephrolithiasis is presented with acute renal failure and bilateral hydronephrosis requiring double-J stents. Since that time there is been slow but steady improvement in his GFR. Laboratory Tests 02/27/21 04:44 Sodium 146 H Potassium 3.4 Chloride 107 Carbon Dioxide 24 Anion Gap 15.0 BUN 70 H Creatinine 4.7 H GFR Calculation 12 Glucose 130 H Calcium 7.8 L Phosphorus 4.5 Magnesium 1.4 L Albumin 3.5 Serum Creatinine Constitutional Vitals: Vital Signs Temp Pulse Resp BP Pulse Ox 36.5 C 73 23 H 143/75 100 02/27/21 07:01 02/27/21 07:14 02/27/21 07:14 02/27/21 07:01 02/27/21 07:14 Period Temp Pulse Resp BP Sys/Sanon Pulse Ox Last 24 Hr 36.5 C-37.1 C 72-141 13-31 82-170/49-93 93-100 Intake and Output 02/26/21 02/27/21 02/27/21 21:59 05:59 13:59 Intake Total 2059 2610 Output Total 2365 2960 450 Balance -305 -350 -450 Weight 127.641 kg Intake & Output: Intake & Output 02/26/21 02/27/21 02/27/21 21:59 05:59 13:59 Intake Total 2059 2610 Output Total 2365 2960 450 Balance -305 -350 -450 Weight 127.641 kg Intake: IV 2060 1010 Dextrose 5%-Ns W/20Meq KCl 1, 1000 000 ml @ 84 mls/hr IV .[id number] CJ Rx#:[id number] Potassium Chloride 20 Meq In 1010 1010 Sodium Chloride 0.45% 1,000 ml @ 125 mls/hr IV .Q8H5M CJ Rx#: [id number] Oral 1600 Output: Urine Catheter Amount 2365 2960 450 Other: Meal Dinner Percent of Meal Consumed 100% Urine Appearance Clear Clear Small Blood Clots Urine Color Blood Tinged Blood Tinged Blood Tinged # Bowel Movements 1 General appearance: no acute distress and obese Head Head exam: Present normal inspection Eye Eye exam: Present PERRL; Absent scleral icterus ENT ENT exam: Present mucous membranes moist Neck Neck exam: Present full ROM and normal inspection; Absent meningismus Respiratory Respiratory exam: Present normal respiratory exam and CTAB Cardiovascular Cardiovascular exam: Present normal rate and rhythm, RRR, +S1 and +S2 GI/Abdominal GI/Abdominal exam: Present normal bowel sounds; Absent bruit Additional comments: Saavedra removed Double J stents in place Extremities Exam Extremities exam: Absent calf tenderness Neurological Exam Neurological exam: Present alert, CN II-XII intact and oriented X3 Psychiatric Psychiatric exam: Present normal affect Skin Skin exam: Present normal color; Absent pallor, petechiae and rash A/P Assessment and plan (1) Acute bilateral obstructive uropathy: Status: Acute Comment: Daily improvement after bilateral stents placed (2) Metabolic acidosis with increased anion gap and accumulation of organic acid s: Status: Resolved Comment: Corrected. Acute renal failure, obstruction with type IV RTA, Metformin (3) Acute hyperkalemia: Status: Resolved Comment: Obstruction, type IV RTA, lisinopril Resolved after relief of obstruction and discontinuation of lisinopril Probably would benefit from supplemental potassium citrate (4) Nausea & vomiting: Status: Resolved Qualifiers: Vomiting Intractability: intractable Vomiting type: unspecified Q ualified Code(s): R11.2 - Nausea with vomiting, unspecified (5) Bilateral kidney stones: Status: Acute Comment: Bilateral stent placement Future stone extraction we will have to consider his [employer] methodist believes and refusal for packed red blood Narrative A/P Narrative: Assessment and plan (1) Acute renal failure: (2) Acute hyperkalemia: (3) Metabolic acidosis with increased anion gap and accumulation of organic acids: (4) Acute bilateral obstructive uropathy: Narrative: This patient has a 1 month history of acute renal failure primarily due to bilateral obstructive uropathy from kidney stones as demonstrated on today's imaging. Lisinopril was contributing to worsening GFR by interfering with renal autoregulation of blood flow Metformin was contributing to the obstruction related type IV RTA (not anion gap) by causing a lactic acidosis due to its administration in a patient with GFR less than 10 cc/min. Anticipate all this will improve but cannot be assured of return to normal GFR, depends how long obstruction has been present Anticipate that he will require potassium replacement as his acidosis is corrected. I'd use K-citrate Replace Mg prn Acute bilateral stent deployment Surgical intervention for definitive management of obstruction to follow, c omplicated by [employer] methodist believes and desire not to receive packed red blood cells. Could bank his own blood preoperatively Will accept KWADWO therapy Time Spent With Patient Time: Total time spent is greater than 50% in coordination of care (as documented) at patient's floor/unit and/or counseling patient:
--- NOTE | 2021-02-27 07:50 | General Surgery Progress Note ---
SUBJECTIVE Subjective Patient information: Note initiated : 02/27/21 at 7:46 am Service Date, if different from initiated Date: [] Patient: Finesse Beaver 65 y/o M admitted on 02/24/21 for weakness, GI upset. Chief Complaint: [] Interval history: Patient without significant change and resting comfortably taking p.o. well Urine clearing Medical and nephrology input noted Constitutional Vitals: Vital Signs Temp Pulse Resp BP Pulse Ox 97.7 F 73 23 H 143/75 100 02/27/21 07:01 02/27/21 07:14 02/27/21 07:14 02/27/21 07:01 02/27/21 07:14 Period Temp Pulse Resp BP Sys/Sanon Pulse Ox Last 24 Hr 97.7 F-98.8 F 72-141 13-31 82-170/49-93 93-100 Intake and Output 02/26/21 02/27/21 02/27/21 21:59 05:59 13:59 Intake Total 2060 2610 Output Total 2365 2960 450 Balance -305 -350 -450 Weight 281 lb 6.4 oz Intake & Output: Intake & Output 02/26/21 02/27/21 02/27/21 21:59 05:59 13:59 Intake Total 2060 2610 Output Total 2365 2960 450 Balance -305 -350 -450 Weight 281 lb 6.4 oz Intake: IV 2060 1010 Dextrose 5%-Ns W/20Meq KCl 1, 1000 000 ml @ 84 mls/hr IV .[id number] [facility]J Rx#:[id number] Potassium Chloride 20 Meq In 1010 1010 Sodium Chloride 0.45% 1,000 ml @ 125 mls/hr IV .Q8H5M CJ Rx#: [id number] Oral 1600 Output: Urine Catheter Amount 2365 2960 450 Other: Meal Dinner Percent of Meal Consumed 100% Urine Appearance Clear Clear Small Blood Clots Urine Color Blood Tinged Blood Tinged Blood Tinged # Bowel Movements 1 Additional findings Additional findings: Nontoxic comfortable in no acute distress Abdomen remains soft but obese Peripheral edema declining Saavedra catheter demonstrating decreasing hematuria A/P Narrative A/P Narrative: Assessment: Continues to have renal improvement as well as overall medical status Plan: Continue present regimen Mild increase in WBC on CBC we will continue to monitor Course and new urine culture to assure sterility Time Spent With Patient Time: Total time spent is greater than 50% in coordination of care (as documented) at patient's floor/unit and/or counseling patient:
[2021-02-27] MEDS: INSULIN GLARGINE, HUMAN 1 UNIT/0.01 ML SQ SCH (08:18)
[2021-02-27] MEDS: HEPARIN 5,000 UNIT/ML VIAL SQ SCH ×2 (08:18→20:54)
[2021-02-27] MEDS: INSULIN LISPRO 1 UNIT/0.01 ML UNIT SQ SCH ×4 (08:19→20:54)
[2021-02-27] MEDS: DOCUSATE SODIUM 100 MG CAPSULE PO SCH ×2 (08:19→20:54)
--- NOTE | 2021-02-27 09:11 | Internal Med Progress Note ---
SUBJECTIVE Subjective Patient information: Note initiated : 02/27/21 at 9:07 am Service Date, if different from initiated Date: [] Patient: Finesse Beaver 65 y/o M admitted on 02/24/21 for weakness, GI upset. Chief Complaint: [] Interval history: Mr. Beaver is a 65 year old male with a history of hypertension, non-insulin diabetes, CKD stage III, history of melanoma status post resection and immunotherapyno known recurrence, psoriasis who presented to the ED for nausea, vomiting and generally feeling unwell. Patient was found to be in renal failure with a creatinine of 16.3, anion gap metabolic acidosis, mild hyperkalemia. The patient had previous labs which showed a creatinine of 2.61 on February 07, 2021. Patient says that he was feeling okay up until about a week ago when he developed watery diarrhea which progressed to intractable xuan sea and vomiting. The patient experienced chills during this time but does not recall any fevers. The patient's diarrhea has resolved but he continues to have intractable vomiting and unable to keep down food or liquids. Patient says that he stopped urinating 2 to 3 days ago. Review of available documents show that the patient had an elevated creatinine in December 2019 of 1.61, repeat labs in January 2020 showed a creatinine of 1.65. Patient said he had labs drawn during a routine wellness visit on February 07, 2021. Creatinine at that time was 2.61. Hemoglobin was slightly decreased at 12.3. Hemoglobin A1c was 6.9. The patient was admitted for management and further up of acute renal failure. Workup included bilateral renal ultrasound suspicious for obstructing ureteral calculi then CT abd/pelvis confirming bilateral hydronephrosis with obstructing ureteral calculi. Urology consulted and placed bilateral ureteral stents. 02/25 Feels better today overall, improved appetite. Developed post obstructive diuresis requiring aggressive IV fluid replacement. Improving renal function. 02/26 Renal function continues to improve, polyuric reflecting ongoing post obstructive diuresis. Hypernatremia developed-increased 1/2 NS, repeat BMP later. Metabolic acidosis resolved. Low Mg replaced. Hypocalcemia noted, Vitamin 25-OH D low 9.17, started high dose vitamin D supplementation. Anticipate benton catheter can be removed later today or tomorrow. 02/27 Improved renal function, stable hypernatremia, mild leukocytosis-afebrile. Removed benton catheter. Continues to require IV fluid replacement for high urine output. PT and OT. Head: Atraumatic, normal inspection. Eyes: normal appearance, no scleral icterus. Neck: full ROM Respiratory: no respiratory distress. Cardiovascular: normal rate and rhythm, S1, S2. GI/Abdominal: soft, nontender, no guarding. Extremities: full range of motion, nontender. Neurological: CN II-XII intact, intact motor, intact sensation. Psychiatric: normal mood. Skin: warm, normal color Constitutional Vitals: Vital Signs Temp Pulse Resp BP Pulse Ox 97.7 F 73 23 H 143/75 100 02/27/21 07:01 02/27/21 07:14 02/27/21 07:14 02/27/21 07:01 02/27/21 07:14 Period Temp Pulse Resp BP Sys/Sanon Pulse Ox Last 24 Hr 97.7 F-98.8 F 72-125 13-31 104-170/49-93 93-100 Intake and Output 02/26/21 02/27/21 02/27/21 21:59 05:59 13:59 Intake Total 2060 2610 Output Total 2365 2960 550 Balance -305 -350 -550 Weight 127.641 kg Intake & Output: Intake & Output 02/26/21 02/27/21 02/27/21 21:59 05:59 13:59 Intake Total 2060 2610 Output Total 2365 2960 550 Balance -305 -350 -550 Weight 127.641 kg Intake: IV 2060 1010 Dextrose 5%-Ns W/20Meq KCl 1, 1000 000 ml @ 84 mls/hr IV .[id number] CJ Rx#:[id number] Potassium Chloride 20 Meq In 1010 1010 Sodium Chloride 0.45% 1,000 ml @ 125 mls/hr IV .[id number] CJ Rx#: [id number] Oral 1600 Output: Urine Catheter Amount 2365 2960 450 Void Amount 100 Other: Meal Dinner Percent of Meal Consumed 100% Urine Appearance Clear Clear Small Blood Clots Urine Color Blood Tinged Blood Tinged Blood Tinged # Bowel Movements 1 OBJ DATA Labs CBC & Chem 7: 02/27/21 04:44 02/27/21 04:44 Labs: Abnormal Lab Results 02/27/21 02/27/21 02/26/21 04:44 04:44 12:15 WBC 11.1 H RBC 3.12 L Hgb 9.7 L Hct 28.9 L MCHC MPV 11.6 H Neut % (Auto) Lymph % (Auto) Lymph # (Auto) Linn # (Auto) Seg Neutrophils % Lymphocytes % Absolute Neutrophils Sodium 146 H 146 H Potassium Chloride Carbon Dioxide Anion Gap 17.0 H BUN 70 H 84 H Creatinine 4.7 H 6.4 H* Glucose 130 H 216 H Uric Acid Calcium 7.8 L 8.0 L Phosphorus Magnesium 1.4 L Lactate Dehydrogenase Total Protein Triglycerides 25-OH Vitamin D Total Urine Appearance Urine Protein Urine Glucose (UA) Urine Ketones Urine Occult Blood Ur Leukocyte Esterase Urine RBC Urine WBC Ur Random Creatinine Ur Random Chloride 02/26/21 02/26/21 02/26/21 05:19 04:44 04:44 WBC RBC 2.82 L Hgb 8.8 L Hct 25.0 L MCHC MPV 11.8 H Neut % (Auto) Lymph % (Auto) Lymph # (Auto) Linn # (Auto) Seg Neutrophils % 82 H Lymphocytes % 14 L Absolute Neutrophils Sodium 149 H Potassium Chloride 109 H Carbon Dioxide Anion Gap BUN 94 H Creatinine 7.8 H* Glucose 149 H Uric Acid 9.6 H Calcium 7.2 L Phosphorus 5.3 H Magnesium 1.4 L Lactate Dehydrogenase Total Protein 5.8 L Triglycerides 25-OH Vitamin D Total 9.17 L Urine Appearance Urine Protein Urine Glucose (UA) Urine Ketones Urine Occult Blood Ur Leukocyte Esterase Urine RBC Urine WBC Ur Random Creatinine Ur Random Chloride 02/26/21 02/25/21 02/25/21 00:17 17:55 14:00 WBC RBC Hgb Hct MCHC MPV Neut % (Auto) Lymph % (Auto) Lymph # (Auto) Linn # (Auto) Seg Neutrophils % Lymphocytes % Absolute Neutrophils Sodium Potassium 3.2 L Chloride Carbon Dioxide 20 L Anion Gap 19.0 H BUN 99 H 107 H* Creatinine 8.8 H* 9.6 H* Glucose 136 H 194 H Uric Acid Calcium 7.0 L 7.1 L Phosphorus Magnesium Lactate Dehydrogenase Total Protein Triglycerides 25-OH Vitamin D Total Urine Appearance Hazy A Urine Protein 100 A Urine Glucose (UA) 50 A Urine Ketones Urine Occult Blood >=1.0 A Ur Leukocyte Esterase 25 A Urine RBC > 182 H Urine WBC 18 H Ur Random Creatinine Ur Random Chloride 02/25/21 02/25/21 02/25/21 11:10 11:10 11:10 WBC RBC 2.82 L Hgb 8.8 L Hct 24.6 L MCHC MPV 12.0 H Neut % (Auto) 85.2 H Lymph % (Auto) 6.4 L Lymph # (Auto) 0.66 L Linn # (Auto) Seg Neutrophils % Lymphocytes % Absolute Neutrophils 8.82 H Sodium Potassium Chloride Carbon Dioxide 21 L Anion Gap 19.0 H BUN 116 H* Creatinine 10.9 H* Glucose 260 H Uric Acid 11.7 H 11.3 H Calcium 7.1 L Phosphorus 6.3 H* Magnesium Lactate Dehydrogenase Total Protein 5.5 L Triglycerides 25-OH Vitamin D Total Urine Appearance Urine Protein Urine Glucose (UA) Urine Ketones Urine Occult Blood Ur Leukocyte Esterase Urine RBC Urine WBC Ur Random Creatinine Ur Random Chloride 02/25/21 02/25/21 02/24/21 04:51 04:50 21:09 WBC RBC 2.84 L Hgb 9.0 L Hct 24.7 L MCHC 36.4 H MPV 12.0 H Neut % (Auto) Lymph % (Auto) Lymph # (Auto) Linn # (Auto) Seg Neutrophils % 92 H Lymphocytes % 5 L Absolute Neutrophils Sodium Potassium Chloride Carbon Dioxide 19 L 14 L Anion Gap 20.0 H 26.0 H BUN 131 H* 144 H* Creatinine 12.3 H* 14.3 H* Glucose 282 H 280 H Uric Acid 13.5 H Calcium 7.6 L 8.2 L Phosphorus 6.8 H* 8.8 H* Magnesium Lactate Dehydrogenase Total Protein 5.8 L Triglycerides 25-OH Vitamin D Total Urine Appearance Urine Protein Urine Glucose (UA) Urine Ketones Urine Occult Blood Ur Leukocyte Esterase Urine RBC Urine WBC Ur Random Creatinine Ur Random Chloride 02/24/21 02/24/21 02/24/21 21:08 16:29 16:29 WBC 11.3 H RBC 3.25 L Hgb 10.1 L Hct 28.3 L MCHC MPV 12.0 H Neut % (Auto) Lymph % (Auto) Lymph # (Auto) Linn # (Auto) Seg Neutrophils % Lymphocytes % Absolute Neutrophils Sodium Potassium Chloride Carbon Dioxide Anion Gap BUN Creatinine Glucose Uric Acid Calcium Phosphorus Magnesium Lactate Dehydrogenase Total Protein Triglycerides 25-OH Vitamin D Total Urine Appearance Urine Protein 100 A Urine Glucose (UA) 150 A Urine Ketones 5 A Urine Occult Blood Ur Leukocyte Esterase 25 A Urine RBC > 182 H Urine WBC 10 H Ur Random Creatinine Ur Random Chloride 88 L 02/24/21 02/24/21 02/24/21 16:29 16:18 09:32 WBC RBC Hgb Hct MCHC MPV Neut % (Auto) Lymph % (Auto) Lymph # (Auto) Linn # (Auto) Seg Neutrophils % Lymphocytes % Absolute Neutrophils Sodium Potassium 5.5 H 5.2 H Chloride 95 L Carbon Dioxide 11 L 9 L* Anion Gap 32.0 H 33.0 H BUN 151 H* 161 H* Creatinine 15.5 H* 16.3 H* Glucose 184 H 122 H Uric Acid 14.6 H Calcium Phosphorus 11.7 H* Magnesium Lactate Dehydrogenase 245 H Total Protein Triglycerides 178 H 25-OH Vitamin D Total Urine Appearance Urine Protein Urine Glucose (UA) Urine Ketones Urine Occult Blood Ur Leukocyte Esterase Urine RBC Urine WBC Ur Random Creatinine 27.9 L Ur Random Chloride 02/24/21 09:32 WBC 13.3 H RBC 3.48 L Hgb 10.8 L Hct 31.5 L MCHC MPV 11.6 H Neut % (Auto) Lymph % (Auto) 14.7 L Lymph # (Auto) Linn # (Auto) 1.18 H Seg Neutrophils % Lymphocytes % Absolute Neutrophils 10.11 H Sodium Potassium Chloride Carbon Dioxide Anion Gap BUN Creatinine Glucose Uric Acid Calcium Phosphorus Magnesium Lactate Dehydrogenase Total Protein Triglycerides 25-OH Vitamin D Total Urine Appearance Urine Protein Urine Glucose (UA) Urine Ketones Urine Occult Blood Ur Leukocyte Esterase Urine RBC Urine WBC Ur Random Creatinine Ur Random Chloride Meds: Medications Acetaminophen (Acetaminophen 325 Mg Tablet) 650 mg PO Q4HP PRN; Protocol PRN Reason: Per Pain Protocol Last Admin: 02/25/21 05:20 Dose: 650 mg Documented by: Dextrose (Dextrose 50% 50 Ml Vial) 0 ml IV UD PRN PRN Reason: Hypoglycemia Dextrose (Dextrose 50% 50 Ml Vial) 0 ml IV UD PRN PRN Reason: Hypoglycemia Diagnostic Test (Pha) (Accu-Chek 1 Each Strip) 1 each FS ACHS [facility] Last Admin: 02/27/21 07:13 Dose: 1 each Documented by: Docusate Sodium (Docusate Sodium 100 Mg Capsule) 100 mg PO BID [facility] Last Admin: 02/27/21 08:19 Dose: 100 mg Documented by: Ergocalciferol (Ergocalciferol (Vitamin D2) 50,000 Unit Capsule) 50,000 unit PO Q7D [facility] Stop: 04/02/21 09:01 Last Admin: 02/26/21 10:05 Dose: 50,000 unit Documented by: Glucose (Dextrose 31 Gm Oral.Susp) 15 gm PO PRN PRN PRN Reason: Hypoglycemia Glucose (Dextrose 31 Gm Oral.Susp) 15 gm PO PRN PRN PRN Reason: Hypoglycemia Heparin Sodium (Porcine) (Heparin 5,000 Unit/Ml Vial) 5,000 unit SQ Q12 [facility] Last Admin: 02/27/21 08:18 Dose: 5,000 unit Documented by: Potassium Chloride/Dextrose/Sod Cl (Dextrose 5%-Ns W/20meq Kcl) 1,000 mls @ 84 mls/hr IV .[id number] [facility] Last Admin: 02/26/21 21:30 Dose: Not Given Documented by: Insulin Glargine (Insulin Glargine, Human 1 Unit/0.01 Ml) 5 unit SQ DAILY [facility] Last Admin: 02/27/21 08:18 Dose: 5 units Documented by: Insulin Human Lispro (Insulin Lispro 1 Unit/0.01 Ml Unit) 0 unit SQ ACHS [facility]; Protocol Last Admin: 02/27/21 08:19 Dose: 1 units Documented by: Ondansetron HCl (Ondansetron 4 Mg/2 Ml Vial) 4 mg IV Q6HP PRN PRN Reason: Nausea And Vomiting Senna (Sennosides 1 Tablet) 2 tab PO HS [facility] Last Admin: 02/26/21 21:06 Dose: 2 tab Documented by: Sodium Chloride (0.9 % Sodium Chloride 10 Ml Syringe) 10 ml IV Q8 [facility] Last Admin: 02/27/21 05:07 Dose: Not Given Documented by: A/P Narrative A/P Narrative: Assessment: 65-year-old male with a history of HTN, EHrtu-czopnag-varsyeyan, CKD III, history of renal stones, history of melanoma status post resection and immunotherapyno known recurrence, psoriasis admitted for acute on chronic failure secondary to bilateral obstructing ureteral calculi s/p bilateral stents on 02/24 followed by improvement in renal function however complicated by post operative diuresis. #Acute on chronic kidney disease stage III injury d/t obstructive nephropathy: improving #Bilateral hydronephrosis d/t ureteral calculi s/p mars uretal stents (02/24) #Post-obstructive diuresis #Hypernatremia #Hyperuricemia #Possible uric acid renal calculi #Acute on chronic anemia: likely dilutional #Vitamin D deficiency #Hypocalcemia #Diabetes mellitus #Essential hypertension #Hx of melanoma status post resection and immunotherapy in the no known recurrence #Plaque psoriasis #Obesity #Anion gap metabolic acidosis #Hyperkalemia: resolved #Hypertensive urgency: resolved Plan -1/2 NS+KCL IV fluid, replacing 1/2 urine output per nephrology -Follow urine output and renal function. -Follow and replace electrolytes prn. -Avoid nephrotoxic meds, renally dose meds. -Lantus and SSI-low. -Holding home lisinoprilhydrochlorothiazide, Metformin. -Nephrology following. -Vitamin D supplementation. -Telemetry while in PCU. -Urology was consulted. -Removed benton catheter. -PT and OT. -DVT PPx: Heparin SQ -CODE STATUS: DNR per patient's request. -Disposition: probably home when stable with nephrology and urology follow up, likely surgical ureteral calculus extraction at some point given large size and proximal locations. Time Spent With Patient Time: Total time spent is greater than 50% in coordination of care (as docum ented) at patient's floor/unit and/or counseling patient: QUALITY VTE Deep Vein Thrombosis/Pulmonary Embolism Present on Admission: No
[2021-02-27] MEDS ORDERED: POTASSIUM CHLORIDE 20 MEQ in 0.45 % SODIUM CHLORIDE 1,000 ML IV PRN (11:11)
[2021-02-27] MEDS: DEXTROSE 5%-NS W/20MEQ KCL 1,000 ML IV SCH (16:07)
[2021-02-27] MEDS: SENNOSIDES 1 TABLET PO SCH (20:54)
[2021-02-28] MEDS: 0.9 % SODIUM CHLORIDE 10 ML SYRINGE IV SCH ×3 (05:24→21:10)
[2021-02-28 06:48] LABS: Albumin 3.5 gm/dL (3.2-5.2); Calcium 8.5 mg/dL (8.6-10.4); Phosphorous 4.3 mg/dL (2.5-4.5)
[2021-02-28 07:10] LABS: Prostate Specific Antigen 1.89 ng/mL (<4.50)
--- NOTE | 2021-02-28 07:29 | Nephrology Progress Note ---
SUBJECTIVE Subjective Patient information: Note initiated : 02/28/21 at 7:26 am Service Date, if different from initiated Date: [] Patient: Finesse Beaver 65 y/o M admitted on 02/24/21 for weakness, GI upset. Chief Complaint: [Nausea and vomiting] Patient was admitted with acute renal failure in the setting of bilateral obstructive uropathy, concurrent CARLOS inhibitor administration. Also acidotic due to type IV RTA seen obstruction and Metformin administration. Since placement of bilateral stents he is exhibited daily improvement in his GFR and day postobstructive diuresis. Saavedra catheter was DC'd yesterday He was switched to p.o. fluids and IVs were stopped He is currently hemodynamically stable and afebrile. Despite being acidotic his initial pH was 7.0 so this makes me think Proteus or other urea splitting organisms causing staghorn calculi. From my point of view, he can be discharged with potassium supplementation, weekly basic metabolic panel, follow-up in my office in 1 week. He will need elective stone debulking keeping in mind he is a Jehovah witness and will refuse blood products. Laboratory Tests 02/26/21 02/28/21 04:44 05:09 Sodium 142 Potassium 3.6 Chloride 103 Carbon Dioxide 27 Anion Gap 12.0 BUN 61 H Creatinine 3.3 H GFR Calculation 19 Glucose 132 H Calcium 8.5 L Phosphorus 4.3 Magnesium 1.6 Albumin 3.5 Prostate Specific Ag 1.89 25-OH Vitamin D Total 9.17 L Constitutional Vitals: Vital Signs Temp Pulse Resp BP Pulse Ox 36.9 C 82 16 143/76 97 02/28/21 04:01 02/28/21 06:01 02/28/21 06:01 02/28/21 06:01 02/28/21 06:01 Period Temp Pulse Resp BP Sys/Sanon Pulse Ox Last 24 Hr 36.4 C-36.9 C 74-117 14-31 107-169/60-93 90-100 Intake and Output 02/27/21 02/28/21 02/28/21 21:59 05:59 13:59 Intake Total 2295 600 0 Output Total 1250 1050 225 Balance 1045 -450 -225 Weight 126.371 kg Intake & Output: Intake & Output 02/27/21 02/28/21 02/28/21 21:59 05:59 13:59 Intake Total 2295 600 0 Output Total 1250 1050 225 Balance 1045 -450 -225 Weight 126.371 kg Intake: IV 325 Potassium Chloride 20 Meq In 275 Sodium Chloride 0.45% 1,000 ml @ As Directed 999 mls/hr IV . Q1H1M PRN Rx#:[id number] Oral 1970 600 0 Output: Void Amount 1250 1050 225 Other: Meal Dinner Percent of Meal Consumed 100% Urine Appearance Clear Clear Hematuria Hematuria Urine Color Dark Kelley Light Kelley Light Kelley Urine Odor Normal Normal General appearance: no acute distress and obese Exam: Nontoxic but tachycardic Head Head exam: Present atraumatic and normocephalic Eye Eye exam: Present EOMI and PERRL; Absent scleral icterus Pupils: Present PERRL ENT ENT exam: Present mucous membranes moist Neck Neck exam: Present full ROM Respiratory Respiratory exam: Present normal respiratory exam and CTAB Cardiovascular Cardiovascular exam: Present +S1, +S2 and tachycardia GI/Abdominal GI/Abdominal exam: Present normal bowel sounds and soft; Absent guarding and tenderness Additional comments: Saavedra removed voiding freely Back Exam Back exam: Absent CVA tenderness (L) and CVA tenderness (R) Neurological Exam Neurological exam: Present alert, CN II-XII intact, normal gait and oriented X3 Psychiatric Psychiatric exam: Present normal affect and normal mood Skin Skin exam: Present rash (Psoriasis) A/P Assessment and plan (1) Acute bilateral obstructive uropathy: Status: Acute Comment: Daily improvement after bilateral stents placed (2) Bilateral kidney stones: Status: Acute Comment: Bilateral stent placement Future stone extraction we will have to consider his [employer] believes and refusal for packed red blood (3) Acute renal failure: Status: Acute Qualifiers: Acute renal failure type: unspecified Qualified Code(s): N17.9 - Acute kidney failure, unspecified Narrative A/P Narrative: 1. OK for discharge and weekly labs 2. 1 month Nephro follow up SUMMARY AND RECOMMENDATIONS from [facility] Summary Staghorn calculi refer to branched stones that fill all or part of the renal pelvis and branch into several or all of the calyces. They are most often composed of struvite (magnesium ammonium phosphate) and/or calcium carbonate apatite. These stones are strongly associated with urinary tract infections and persistent infection of the stone. Staghorn calculi can lead to sepsis, deterioration of kidney function, and end- stage renal disease if left untreated. Since medical therapy alone is usually not successful, most patients require definitive surgical treatment. The major surgical alternatives for staghorn calculi include percutaneous nephrolithotomy (PNL), shock-wave lithotripsy (SWL), the combination of PNL and SWL, and open surgery. Recommendations The following recommendations apply to adult patients with a non-cystine, non-uric acid staghorn calculus, who have two equally well- functioning kidneys or a solitary kidney with normal kidney function. In addition, it is assumed that the medical condition of the patient is such that they could tolerate anesthesia and any of the four modalities of treatment. Given the poor outcomes associated with non-removal of staghorn calculi, we recommend that all newly diagnosed patients undergo a stone removal procedure (Grade 1B). (See 'Treatment options' above.) We suggest that percutaneous nephrolithotomy (PNL) be used as the first line of treatment for most patients (Grade 2B). PNL should be the final procedure in patients who require combination therapy with PNL and SWL, to ensure that stone fragments are removed. (See 'Combination of PNL and SWL' above.) We suggest SWL as monotherapy, with placement of adequate drainage of the kidney prior to the procedure (usually a ureteral stent), only in selected patients with small stone volumes who have normal collecting system anatomy (Grade 2B). For patients with small fragments that persist eight weeks after the procedure, we suggest appropriate antibiotic treatment and administration of 40 to 60 mEq of potassium citrate per day (Grade 2C). (See 'Residual stone fragments' above.) Given that outcomes with percutaneous nephrolithotomy are similar to open surgery, but with lower morbidity, we recommend open surgery (anatrophic nephrolithotomy) only in very selected circumstances, as follows (Grade 1B): Patients with a large stone burden, especially if the collecting system anatomy is very distorted, in whom a reasonable number of less invasive procedures would not be expected to successfully remove the stone. Morbidly obese individuals in whom endoscopic and fluoroscopic techniques are difficult. For patients with a staghorn stone in a non-functioning or poorly functioning kidney, especially if it is chronically infected, nephrectomy is a reasonable treatment option. Subsequent to successful treatment, periodic monitoring (every 6 to 12 months) should be undertaken since new stones may occur, occasionally affecting the contralateral kidney. Urologic imaging with plain abdominal radiographs or a non-contrasted renal CT scan and 24-hour urinary testing will help determine stone recurrence and the adequacy of medical stone management. (See "Evaluation of the adult patient with established nephrolithiasis and treatment if stone composition is unknown", section on 'Radiologic monitoring' and "Evaluation of the adult patient with established nephrolithiasis and treatment if stone composition is unknown", section on 'The complete metabolic evaluation'.) Time Spent With Patient Time: Total time spent is greater than 50% in coordination of care (as documented) at patient's floor/unit and/or counseling patient:
--- NOTE | 2021-02-28 07:53 | General Surgery Progress Note ---
SUBJECTIVE Subjective Patient information: Note initiated : 02/28/21 at 7:51 am Service Date, if different from initiated Date: [] Patient: Finesse Beaver 65 y/o M admitted on 02/24/21 for weakness, GI upset. Chief Complaint: [] Interval history: Patient comfortable this morning and continues to do well with adequate voiding Constitutional Vitals: Vital Signs Temp Pulse Resp BP Pulse Ox 98.5 F 82 16 143/76 97 02/28/21 04:01 02/28/21 06:01 02/28/21 06:01 02/28/21 06:01 02/28/21 06:01 Period Temp Pulse Resp BP Sys/Sanon Pulse Ox Last 24 Hr 97.5 F-98.5 F 74-117 14-31 107-169/60-93 90-100 Intake and Output 02/27/21 02/28/21 02/28/21 21:59 05:59 13:59 Intake Total 2295 600 0 Output Total 1250 1050 400 Balance 1045 -450 -400 Weight 278 lb 9.6 oz Intake & Output: Intake & Output 02/27/21 02/28/21 02/28/21 21:59 05:59 13:59 Intake Total 2295 600 0 Output Total 1250 1050 400 Balance 1045 -450 -400 Weight 278 lb 9.6 oz Intake: IV 325 Potassium Chloride 20 Meq In 275 Sodium Chloride 0.45% 1,000 ml @ As Directed 999 mls/hr IV . Q1H1M PRN Rx#:[id number] Oral 1970 600 0 Output: Void Amount 1250 1050 400 Other: Meal Dinner Breakfast Percent of Meal Consumed 100% 100% Urine Appearance Clear Clear Hematuria Hematuria Urine Color Dark Kelley Light Kelley Light Kelley Urine Odor Normal Normal Additional findings Additional findings: Patient with no CVA tenderness and no abdominal tenderness comfortable and eating well Postvoid residuals reasonable A/P Narrative A/P Narrative: Assessment: Continues to have steady improvement in renal function and overall activity level Agree with nephrology plan Plan: Continue medical management and likely surgical intervention monitor renal recovery more established Time Spent With Patient Time: Total time spent is greater than 50% in coordination of care (as documented) at patient's floor/unit and/or counseling patient:
[2021-02-28] MEDS: HEPARIN 5,000 UNIT/ML VIAL SQ SCH ×2 (08:09→21:09)
[2021-02-28] MEDS: DOCUSATE SODIUM 100 MG CAPSULE PO SCH ×2 (08:09→21:09)
[2021-02-28] MEDS: INSULIN LISPRO 1 UNIT/0.01 ML UNIT SQ SCH ×4 (08:13→21:10)
[2021-02-28] MEDS: INSULIN GLARGINE, HUMAN 1 UNIT/0.01 ML SQ SCH (08:14)
[2021-02-28] MEDS ORDERED: 0.9 % SODIUM CHLORIDE 500 ML IV ONE (09:02)
[2021-02-28 10:09] LABS: Hematocrit 29.7 % (41.0-55.0); Hemoglobin 9.9 g/dL (13.5-16.5); Mean Cell Volume 91.7 fL (80.0-100.0); Mean Corpuscular HGB Conc 33.3 g/dL (31.0-36.0); Mean Platelet Volume 11.5 fL (7.4-10.4); Platelet Count 258 K/mcL (140-440); RBC 3.24 M/mcL (4.50-5.90); Red Cell Distribution Width 12.1 % (11.5-14.5); WBC 11.7 K/mcL (4.5-11.0)
[2021-02-28 10:36] LABS: Eosinophils % (Manual) 4 % (0-7); Lymphocytes % 11 % (15-49); Monocytes % (Manual) 5 % (1-12); Platelet Estimate NORMAL (Normal); RBC Morphology NORMAL (Normal); Reactive Lymphocytes 2 % (0-2); Segmented Neutrophils % 78 % (38-78)
--- NOTE | 2021-02-28 14:05 | Internal Med Progress Note ---
SUBJECTIVE Subjective Patient information: Note initiated : 02/28/21 at 2:03 pm Service Date, if different from initiated Date: [] Patient: Finesse Beaver 65 y/o M admitted on 02/24/21 for weakness, GI upset. Chief Complaint: [] Interval history: Mr. Beaver is a 65 year old male with a history of hypertension, non-insulin diabetes, CKD stage III, history of melanoma status post resection and immunotherapyno known recurrence, psoriasis who presented to the ED for nausea, vomiting and generally feeling unwell. Patient was found to be in renal failure with a creatinine of 16.3, anion gap metabolic acidosis, mild hyperkalemia. The patient had previous labs which showed a creatinine of 2.61 on February 07, 2021. Patient says that he was feeling okay up until about a week ago when he developed watery diarrhea which progressed to intractable xuan sea and vomiting. The patient experienced chills during this time but does not recall any fevers. The patient's diarrhea has resolved but he continues to have intractable vomiting and unable to keep down food or liquids. Patient says that he stopped urinating 2 to 3 days ago. Review of available documents show that the patient had an elevated creatinine in December 2019 of 1.61, repeat labs in January 2020 showed a creatinine of 1.65. Patient said he had labs drawn during a routine wellness visit on February 07, 2021. Creatinine at that time was 2.61. Hemoglobin was slightly decreased at 12.3. Hemoglobin A1c was 6.9. The patient was admitted for management and further up of acute renal failure. Workup included bilateral renal ultrasound suspicious for obstructing ureteral calculi then CT abd/pelvis confirming bilateral hydronephrosis with obstructing ureteral calculi. Urology consulted and placed bilateral ureteral stents. 02/25 Feels better today overall, improved appetite. Developed post obstructive diuresis requiring aggressive IV fluid replacement. Improving renal function. 02/26 Renal function continues to improve, polyuric reflecting ongoing post obstructive diuresis. Hypernatremia developed-increased 1/2 NS, repeat BMP later. Metabolic acidosis resolved. Low Mg replaced. Hypocalcemia noted, Vitamin 25-OH D low 9.17, started high dose vitamin D supplementation. Anticipate benton catheter can be removed later today or tomorrow. 02/27 Improved renal function, stable hypernatremia, mild leukocytosis-afebrile. Removed benton catheter. Continues to require IV fluid replacement for high urine output. PT and OT. 02/28 Progressing towards discharge, likely tomorrow if renal function continues to improve. Head: Atraumatic, normal inspection. Eyes: normal appearance, no scleral icterus. Neck: full ROM Respiratory: no respiratory distress. Cardiovascular: normal rate and rhythm, S1, S2. GI/Abdominal: soft, nontender, no guarding. Extremities: full range of motion, nontender. Neurological: CN II-XII intact, intact motor, intact sensation. Psychiatric: normal mood. Skin: warm, normal color Constitutional Vitals: Vital Signs Temp Pulse Resp BP Pulse Ox 98.4 F 76 23 H 144/83 83 L 02/28/21 12:01 02/28/21 12:04 02/28/21 12:04 02/28/21 12:01 02/28/21 12:04 Period Temp Pulse Resp BP Sys/Sanon Pulse Ox Last 24 Hr 97.7 F-98.5 F 74-131 16-32 109-169/64-93 80-100 Intake and Output 02/28/21 02/28/21 02/28/21 05:59 13:59 21:59 Intake Total 600 940 Output Total 1050 625 Balance -450 315 Intake & Output: Intake & Output 02/28/21 02/28/21 02/28/21 05:59 13:59 21:59 Intake Total 600 940 Output Total 1050 625 Balance -450 315 Intake: IV 500 Sodium Chloride 0.9% 500 ml @ 500 Wide Open IV BOLUS ONE Rx#: [id number] Oral 600 440 Output: Void Amount 1050 625 Other: Meal Lunch Percent of Meal Consumed 100% Urine Appearance Clear Hematuria Urine Color Light Kelley Light Kelley Dark Kelley Urine Odor Normal # Voids 1 # of times incontinent of 1 Bowels OBJ DATA Labs CBC & Chem 7: 02/28/21 09:20 02/28/21 05:09 Labs: Abnormal Lab Results 02/28/21 02/28/21 02/27/21 09:20 05:09 04:44 WBC 11.7 H RBC 3.24 L Hgb 9.9 L Hct 29.7 L MPV 11.5 H Seg Neutrophils % Lymphocytes % 11 L Sodium 146 H Potassium Chloride Carbon Dioxide Anion Gap BUN 61 H 70 H Creatinine 3.3 H 4.7 H Glucose 132 H 130 H Uric Acid Calcium 8.5 L 7.8 L Phosphorus Magnesium 1.4 L Total Protein 25-OH Vitamin D Total Urine Appearance Urine Protein Urine Glucose (UA) Urine Occult Blood Ur Leukocyte Esterase Urine RBC Urine WBC 02/27/21 02/26/21 02/26/21 04:44 12:15 05:19 WBC 11.1 H RBC 3.12 L Hgb 9.7 L Hct 28.9 L MPV 11.6 H Seg Neutrophils % Lymphocytes % Sodium 146 H 149 H Potassium Chloride 109 H Carbon Dioxide Anion Gap 17.0 H BUN 84 H 94 H Creatinine 6.4 H* 7.8 H* Glucose 216 H 149 H Uric Acid 9.6 H Calcium 8.0 L 7.2 L Phosphorus 5.3 H Magnesium 1.4 L Total Protein 5.8 L 25-OH Vitamin D Total Urine Appearance Urine Protein Urine Glucose (UA) Urine Occult Blood Ur Leukocyte Esterase Urine RBC Urine WBC 02/26/21 02/26/21 02/26/21 04:44 04:44 00:17 WBC RBC 2.82 L Hgb 8.8 L Hct 25.0 L MPV 11.8 H Seg Neutrophils % 82 H Lymphocytes % 14 L Sodium Potassium 3.2 L Chloride Carbon Dioxide Anion Gap BUN 99 H Creatinine 8.8 H* Glucose 136 H Uric Acid Calcium 7.0 L Phosphorus Magnesium Total Protein 25-OH Vitamin D Total 9.17 L Urine Appearance Urine Protein Urine Glucose (UA) Urine Occult Blood Ur Leukocyte Esterase Urine RBC Urine WBC 02/25/21 02/25/21 02/25/21 17:55 14:00 11:10 WBC RBC Hgb Hct MPV Seg Neutrophils % Lymphocytes % Sodium Potassium Chloride Carbon Dioxide 20 L Anion Gap 19.0 H BUN 107 H* Creatinine 9.6 H* Glucose 194 H Uric Acid 11.7 H Calcium 7.1 L Phosphorus Magnesium Total Protein 25-OH Vitamin D Total Urine Appearance Hazy A Urine Protein 100 A Urine Glucose (UA) 50 A Urine Occult Blood >=1.0 A Ur Leukocyte Esterase 25 A Urine RBC > 182 H Urine WBC 18 H Meds: Medications Acetaminophen (Acetaminophen 325 Mg Tablet) 650 mg PO Q4HP PRN; Protocol PRN Reason: Per Pain Protocol Last Admin: 02/25/21 05:20 Dose: 650 mg Documented by: Dextrose (Dextrose 50% 50 Ml Vial) 0 ml IV UD PRN PRN Reason: Hypoglycemia Dextrose (Dextrose 50% 50 Ml Vial) 0 ml IV UD PRN PRN Reason: Hypoglycemia Diagnostic Test (Pha) (Accu-Chek 1 Each Strip) 1 each FS [facility] Last Admin: 02/28/21 11:40 Dose: 1 each Documented by: Docusate Sodium (Docusate Sodium 100 Mg Capsule) 100 mg PO BID [facility] Last Admin: 02/28/21 08:09 Dose: 100 mg Documented by: Ergocalciferol (Ergocalciferol (Vitamin D2) 50,000 Unit Capsule) 50,000 unit PO Q7D [facility] Stop: 04/02/21 09:01 Last Admin: 02/26/21 10:05 Dose: 50,000 unit Documented by: Glucose (Dextrose 31 Gm Oral.Susp) 15 gm PO PRN PRN PRN Reason: Hypoglycemia Glucose (Dextrose 31 Gm Oral.Susp) 15 gm PO PRN PRN PRN Reason: Hypoglycemia Heparin Sodium (Porcine) (Heparin 5,000 Unit/Ml Vial) 5,000 unit SQ Q12 [facility] Last Admin: 02/28/21 08:09 Dose: 5,000 unit Documented by: Insulin Glargine (Insulin Glargine, Human 1 Unit/0.01 Ml) 5 unit SQ DAILY [facility] Last Admin: 02/28/21 08:14 Dose: 5 units Documented by: Insulin Human Lispro (Insulin Lispro 1 Unit/0.01 Ml Unit) 0 unit SQ [facility]; Protocol Last Admin: 02/28/21 11:42 Dose: 3 units Documented by: Ondansetron HCl (Ondansetron 4 Mg/2 Ml Vial) 4 mg IV Q6HP PRN PRN Reason: Nausea And Vomiting Senna (Sennosides 1 Tablet) 2 tab PO HS [facility] Last Admin: 02/27/21 20:54 Dose: 2 tab Documented by: Sodium Chloride (0.9 % Sodium Chloride 10 Ml Syringe) 10 ml IV Q8 [facility] Last Admin: 02/28/21 05:24 Dose: 10 ml Documented by: A/P Narrative A/P Narrative: Assessment: 65-year-old male with a history of HTN, [id number], CKD III, history of renal stones, history of melanoma status post resection and immunotherapyno known recurrence, psoriasis admitted for acute on chronic failure secondary to bilateral obstructing ureteral calculi s/p bilateral stents on 02/24 followed by improvement in renal function however complicated by post operative diuresis. #Acute on chronic kidney disease stage III injury d/t obstructive nephropathy: improving #Bilateral hydronephrosis d/t ureteral calculi s/p mars uretal stents (02/24) #Post-obstructive diuresis: resolved #Hypernatremia: resolved #Leukocytosis #Hyperuricemia #Possible uric acid renal calculi #Acute on chronic anemia: likely dilutional #Vitamin D deficiency #Hypocalcemia #Diabetes mellitus #Essential hypertension #Hx of melanoma status post resection and immunotherapy in the 1990sno known recurrence #Plaque psoriasis #Obesity #Anion gap metabolic acidosis: resolved #Hyperkalemia: resolved #Hypertensive urgency: resolved Plan -Monitor off IV fluid, follow urine output and renal function. -Follow and replace electrolytes prn. -Follow CBC in AM. -Avoid nephrotoxic meds, renally dose meds. -Lantus and SSI-low, plan to discharge on Lantus. -Holding home lisinoprilhydrochlorothiazide, Metformin. -Nephrology following. -Vitamin D supplementation. -Urology was consulted. -Diabetic education consult for Lantus administration. -PT and OT. -DVT PPx: Heparin SQ -CODE STATUS: DNR per patient's request. -Disposition: probably home tomorrow with nephrology and urology follow up, likely surgical ureteral calculus extraction at some point given large size and proximal locations. Time Spent With Patient Time: Total time spent is greater than 50% in coordination of care (as documented) at patient's floor/unit and/or counseling patient: QUALITY VTE Deep Vein Thrombosis/Pulmonary Embolism Present on Admission: No
[2021-02-28] MEDS: SENNOSIDES 1 TABLET PO SCH (21:09)
[2021-03-01] MEDS: 0.9 % SODIUM CHLORIDE 10 ML SYRINGE IV SCH (05:43)
--- NOTE | 2021-03-01 06:23 | Discharge Summary ---
Discharge Provider Provider Patient information: Note initiated : 03/01/21 at 6:23 am Service Date, if different from initiated Date: [] Patient: Finesse Beaver 65 y/o M admitted on 02/24/21 for weakness, GI upset. Chief Complaint: [] Date of admission: 02/24/21 13:07 Discharge date: 03/01/21 Primary care physician: Shashank Rocha Consults: 02/24/21 Consult to Physician [CONS] Stat Comment: Consulting Provider: Richardson Burgos Reason For Exam: Physician to Consult 02/24/21 11:30 Consult to Physician [CONS] Stat Comment: Consulting Provider: Chris Whittington Reason For Exam: Physician to Consult 02/24/21 13:11 Consult to Physician [CONS] Stat Comment: Consulting Provider: Jose E Palacios Reason For Exam: Physician to Consult Discharge Meds Discharge Medications Home Medications amlodipine [Norvasc] 5 mg PO QDAY #30 tab 03/01/21 [Rx Last Taken Unknown] cholecalciferol (vitamin D3) [Vitamin D3] 125 mcg PO QDAY 42 Days #42 tab 03/01/21 [Rx Last Taken Unknown] insulin glargine [Lantus U-100 Insulin] 10 unit SUBCUT DAILY #10 ml 03/01/21 [Rx Last Taken Unknown] potassium chloride [Klor-Con M20] 20 meq PO QAMCC 10 Days #10 tab 03/01/21 [Rx Last Taken Unknown] COURSE Hospital Course Hospital course: Mr. Beaver is a 65 year old male with a history of hypertension, non-insulin diabetes, CKD stage III, history of melanoma status post resection and immunotherapyno known recurrence, psoriasis who presented to the ED for nausea, vomiting and generally feeling unwell. Patient was found to be in renal failure with a creatinine of 16.3, anion gap metabolic acidosis, mild hyperkalemia. The patient had previous labs which showed a creatinine of 2.61 on February 07, 2021. Patient says that he was feeling okay up until about a week ago when he developed watery diarrhea which progressed to intractable nausea and vomiting. The patient experienced chills during this time but does not recall any fevers. The patient's diarrhea has resolved but he continues to have intractable vomiting and unable to keep down food or liquids. Patient says that he stopped urinating 2 to 3 days ago. Review of available documents show that the patient had an elevated creatinine in December 2019 of 1.61, repeat labs in January 2020 showed a creatinine of 1.65. Patient said he had labs drawn during a routine wellness visit on February 07, 2021. Creatinine at that time was 2.61. Hemoglobin was slightly decreased at 12.3. Hemoglobin A1c was 6.9. The patient was admitted for management and further up of acute renal failure. W orkup included bilateral renal ultrasound suspicious for obstructing ureteral calculi then CT abd/pelvis confirming bilateral hydronephrosis with obstructing ureteral calculi. Urology consulted and placed bilateral ureteral stents soon after hospital admission. 02/25 Feels better today overall, improved appetite. Developed post obstructive diuresis requiring aggressive IV fluid replacement. Improving renal function. 02/26 Renal function continues to improve, polyuric reflecting ongoing post obstructive diuresis. Hypernatremia developed-increased 1/2 NS, repeat BMP later. Metabolic acidosis resolved. Low Mg replaced. Hypocalcemia noted, Vitamin 25-OH D low 9.17, started high dose vitamin D supplementation. Anticipate Benton catheter can be removed later today or tomorrow. 02/27 Improved renal function, stable hypernatremia, mild leukocytosis-afebrile. Removed benton catheter. Continues to require IV fluid replacement for high urine output. PT and OT. Intermittent potassium and magnesium supplementation. 02/28 Progressing towards discharge, probably home tomorrow if renal function continues to improve and all else stable. Nephrology ok with discharge on potassium supplementation, weekly labs, and clinic follow up. 03/01 Discharged to home with nephrology, urology, and PCP follow up. New medications are Norvasc, Lantus, Potassium supplementation, Vitamin D supplementation. Holding Metformin, lisinopril, and hydrochlorothiazide for resolving TAJ no CKD. Post hospital discharge; Follow up weekly labs for improving renal function and potassium level. Follow up with nephrology for recovering TAJ on CKD. Follow up with urology to coordinate bilateral ureteral stone removal which will probably require complex surgical intervention. The patient is discharged with bilateral ureteral stents in the meantime. Follow up with PCP for DM II and hypertension management, requested the patient to keep a glucose diary for follow up management. Check Vitamin D level eventually, discharged on vitamin D3 supplementation for severe Vitamin D deficiency (Vitamin D 25-OH 9.17). Monitor CBD for anemia, likely related to CKD. Discharge diagnosis: acute on chronic kidney injury Secondary discharge diagnosis: Obstructive nephropathy Bilateral hydronephrosis Bilateral ureteral stones Reason for admission: Acute on chronic kidney injury Time Spent with Patient Time attestation: Total time spent providing and/or coordinating discharge services: EXAM Constitutional Vitals: Temp Pulse Resp BP Pulse Ox 98.4 F 73 18 165/68 96 03/01/21 00:00 03/01/21 06:04 03/01/21 06:04 03/01/21 06:02 03/01/21 06:04 Additional findings Additional findings: Head: Atraumatic, normal inspection. Eyes: normal appearance, no scleral icterus. Neck: full ROM Respiratory: no respiratory distress. Cardiovascular: normal rate and rhythm, S1, S2. GI/Abdominal: soft, nontender, no guarding. Extremities: full range of motion, nontender. Neurological: CN II-XII intact, intact motor, intact sensation. Psychiatric: normal mood. Skin: warm, normal color Discharge Data Data Completed and Pending Labs on day of discharge: Labs from last 24 hours 03/01/21 03/01/21 02/28/21 05:05 05:04 09:20 WBC Pending 11.7 H RBC Pending 3.24 L Hgb Pending 9.9 L Hct Pending 29.7 L MCV Pending 91.7 MCH Pending 30.6 MCHC Pending 33.3 RDW Pending 12.1 Plt Count Pending 258 MPV Pending 11.5 H Seg Neutrophils % 78 Lymphocytes % 11 L Monocytes % (Manual) 5 Eosinophils % (Manual) 4 Reactive Lymphocytes 2 Platelet Estimate Pending Normal RBC Morphology Pending Normal Sodium Pending Potassium Pending Chloride Pending Carbon Dioxide Pending Anion Gap Pending BUN Pending Creatinine Pending GFR Calculation Pending Glucose Pending Calcium Pending Phosphorus Pending Magnesium Pending Albumin Pending Prostate Specific Ag 02/28/21 05:09 WBC RBC Hgb Hct MCV MCH MCHC RDW Plt Count MPV Seg Neutrophils % Lymphocytes % Monocytes % (Manual) Eosinophils % (Manual) Reactive Lymphocytes Platelet Estimate RBC Morphology Sodium 142 Potassium 3.6 Chloride 103 Carbon Dioxide 27 Anion Gap 12.0 BUN 61 H Creatinine 3.3 H GFR Calculation 19 Glucose 132 H Calcium 8.5 L Phosphorus 4.3 Magnesium 1.6 Albumin 3.5 Prostate Specific Ag 1.89 Preliminary micro results at discharge 02/27/21 16:00 Urine Culture - Preliminary Urine - Clean Void Mid-Stream Discharge Plan Patient/Caregiver Discharge Instructions Activity: increase activity as tolerated Diet: Renal/Consistent Carbs Instructions: Insulin Glargine (By injection), Hypoglycemia in a Person with Diabetes (DC), How to Give an Insulin Injection (DC), How to Check your Blood Sugar (DC) Prescriptions: New potassium chloride [Klor-Con M20] 20 mEq Tablet,Er Particles/Crystals 20 meq PO QAMCC 10 Days Qty: 10 RF: 0 amlodipine [Norvasc] 5 mg tablet 5 mg PO QDAY Qty: 30 RF: 3 cholecalciferol (vitamin D3) [Vitamin D3] 125 mcg (5,000 unit) tablet 125 mcg PO QDAY 42 Days Qty: 42 RF: 0 Lantus U-100 Insulin 100 unit/mL Solution 10 unit subcut DAILY Qty: 10 RF: 4 Discontinued metformin 1,000 mg Tablet 1,000 mg PO BID RF: 0 lisinopril-hydrochlorothiazide 20-25 mg Tablet 1 tab PO QDAY RF: 0 Other Ambulatory Orders: Magnesium (Routine) Timeframe: 2 Days Facility: [facility] - Location: Laboratory Ordered By: Richardson Burgos Renal Function Panel (WEEKLY) Timeframe: 20210303 Facility: [facility] - Location: Laboratory Ordered By: Richardson Burgos Renal Function Panel (WEEKLY) Timeframe: [id number] Facility: [facility] - Location: Laboratory Ordered By: Richardson Burgos Renal Function Panel (WEEKLY) Timeframe: [id number] Facility: [facility] - Location: Laboratory Ordered By: Richardson Burgos Renal Function Panel (WEEKLY) Timeframe: [id number] Facility: [facility] - Location: Laboratory Ordered By: Richardson Brugos Follow Up Plan Follow up with: Chris Whittington MD [Physician] - 03/26/21 2:15 pm (Hospital follow-up. TAJ and bilateral ureteral stents.) Shashank Rocha MD [Primary Care Provider] - 03/13/21 3:20 pm (Hospital Follow-up ) Jose E Palacios MD [Physician] - Patient Disposition: Home, Self-Care Rehab Potential: Fair Overall status at discharge: patient is progressing back to baseline Discharge Orders: Discharge Order (Routine); Ordered 03/01/21 Ordered By: Richardson LINK VTE Deep Vein Thrombosis/Pulmonary Embolism Present on Admission: No
[2021-03-01 06:58] LABS: Hematocrit 29.6 % (41.0-55.0); Hemoglobin 9.9 g/dL (13.5-16.5); Mean Cell Volume 92.5 fL (80.0-100.0); Mean Corpuscular HGB Conc 33.4 g/dL (31.0-36.0); Mean Platelet Volume 11.4 fL (7.4-10.4); Platelet Count 231 K/mcL (140-440); Red Cell Distribution Width 12.2 % (11.5-14.5); WBC 11.4 K/mcL (4.5-11.0)
[2021-03-01 07:32] LABS: Albumin 3.6 gm/dL (3.2-5.2); Calcium 8.6 mg/dL (8.6-10.4); Phosphorous 4.2 mg/dL (2.5-4.5)
[2021-03-01] MEDS: INSULIN LISPRO 1 UNIT/0.01 ML UNIT SQ SCH ×2 (07:40→12:10)
[2021-03-01] MEDS ORDERED: MAGNESIUM SULFATE 2 GM/50 ML BAG IV ONE (07:42)
--- NOTE | 2021-03-01 07:44 | Nephrology Progress Note ---
SUBJECTIVE Subjective Patient information: Note initiated : 03/01/21 at 7:42 am Service Date, if different from initiated Date: [] Patient: Finesse Beaver 65 y/o M admitted on 02/24/21 for weakness, GI upset. Chief Complaint: [Nausea vomiting and diarrhea] This patient who has a history of nephrolithiasis was admitted with acute renal failure in the setting of bilateral obstruction relieved with bilateral double-J stents with definitive stone removal to follow. Has had daily improvement in his GFR The associated non-anion gap metabolic acidosis (type IV RTA) associated with obstruction has resolved Following his postobstructive diuresis we have been chasing potassium His initial urine pH was 7.0, urine culture negative, urine if he has had urea splitting organisms in the past and staghorn calculus. Laboratory Tests 03/01/21 05:05 Sodium 142 Potassium 3.4 Chloride 103 Carbon Dioxide 24 Anion Gap 15.0 BUN 58 H Creatinine 3.1 H GFR Calculation 20 Glucose 138 H Calcium 8.6 Phosphorus 4.2 Magnesium 1.5 L Albumin 3.6 Serum creatinine Recommend discharge on potassium citrate 10 mEq 3 times daily Constitutional Vitals: Vital Signs Temp Pulse Resp BP Pulse Ox 36.9 C 73 18 165/68 96 03/01/21 00:00 03/01/21 06:04 03/01/21 06:04 03/01/21 06:02 03/01/21 06:04 Period Temp Pulse Resp BP Sys/Sanon Pulse Ox Last 24 Hr 36.8 C-36.9 C 73-131 15-32 109-166/66-90 80-100 Intake and Output 02/28/21 03/01/21 03/01/21 21:59 05:59 13:59 Intake Total 800 1020 Output Total 726 920 126 Balance 74 100 -126 Weight 123.967 kg Intake & Output: Intake & Output 02/28/21 03/01/21 03/01/21 21:59 05:59 13:59 Intake Total 800 1020 Output Total 726 920 126 Balance 74 100 -126 Weight 123.967 kg Intake: Oral 800 1020 Output: Urine Catheter Amount 125 120 Void Amount 600 800 125 # of times incontinent of urine 1 Urine/Stool Mix 1 Other: Meal Dinner Percent of Meal Consumed 100% Urine Appearance Clear Clear Urine Color Light Kelley Light Kelley # Voids 1 General appearance: obese Exam: Sitting up in bed nontoxic awaiting discharge Head Head exam: Present normal inspection Eye Eye exam: Present EOMI and PERRL ENT ENT exam: Present mucous membranes moist Neck Neck exam: Present normal inspection; Absent meningismus Respiratory Respiratory exam: Present CTAB Cardiovascular Cardiovascular exam: Present +S1, +S2 and tachycardia; Absent gallop, irregular rhythm and rubs GI/Abdominal GI/Abdominal exam: Present normal bowel sounds Extremities Exam Extremities exam: Present full ROM Additional comments: 1+ edema Neurological Exam Neurological exam: Present alert, CN II-XII intact, normal gait and oriented X3 Psychiatric Psychiatric exam: Present normal affect and normal mood Skin Skin exam: Present rash Additional comments: Psoriatic lesions A/P Assessment and plan (1) Acute bilateral obstructive uropathy: Status: Acute Comment: Daily improvement after bilateral stents placed (2) Bilateral kidney stones: Status: Acute Comment: Bilateral stent placement Future stone extraction we will have to consider his [employer] congregational believes and refusal for packed red blood (3) Acute renal failure: Status: Acute Qualifiers: Acute renal failure type: unspecified Qualified Code(s): N17.9 - Acute kidney failure, unspecified Narrative A/P Narrative: 1. No objection to discharge today 2. Place of potassium chloride, I would discharge him on potassium citrate 10 mEq 3 times a day 3. Follow-up labs and office visit in about a week 4. May take quite a while for his GFR to maximize recovery as this obstruction may have been prolonged 5. Acidosis has improved 6. Once GFR has leveled off, elective stone extraction bilaterally as arranged by Dr. Palacios 7. Will need 24-hour urine stone risk profile as an outpatient preferably after stone extraction has been performed. Time Spent With Patient Time: Total time spent is greater than 50% in coordination of care (as documented) at patient's floor/unit and/or counseling patient: Total time spent with greater than 50% in coordination of care (as documented) at patient's floor/unit and/or counseling patient:: 25 - 35 minutes
[2021-03-01] MEDS ORDERED: POTASSIUM CHLORIDE 20 MEQ TABLET PO SCH (08:00)
[2021-03-01 08:30] LABS: Eosinophils % (Manual) 2 % (0-7); Lymphocytes % 22 % (15-49); Monocytes % (Manual) 9 % (1-12); Platelet Estimate NORMAL (Normal); RBC Morphology NORMAL (Normal); Segmented Neutrophils % 67 % (38-78)
[2021-03-01] MEDS: DOCUSATE SODIUM 100 MG CAPSULE PO SCH (09:09)
[2021-03-01] MEDS: INSULIN GLARGINE, HUMAN 1 UNIT/0.01 ML SQ SCH (09:09)
[2021-03-01] MEDS: HEPARIN 5,000 UNIT/ML VIAL SQ SCH (09:09)
== END 2021-03-01 12:15 | disposition home or self-care (01) | DRG 683 ==
LOC: ED 09:10 → ICU 13:07
PROVIDERS: ADMIT Internal Medicine; ATTEND Internal Medicine